=== PATIENT | female | born 1945 | race Caucasian/White ===

== ENCOUNTER 2022-05-05 20:15 | Inpatient (IN) | payer MEDICARE ==
[2022-05-05 20:40] LABS: Absolute Neutrophil Ct (ANC) 6.12 x10^3/uL (1.4-6.9); Basophil (Absolute #) 0.02 x10^3/uL (0-0.4); Eosinophil % 0.3 % (0.00-5.0); Eosinophil (Absolute #) 0.02 x10^3/uL (0-0.5); Hematocrit 29.3 % (35-47); Hemoglobin 8.5 g/dL (12.0-16.0); Lymphocyte (Absolute #) 0.67 x10^3/uL (1.0-4.6); Lymphocytes % 9.1 % (24.0-44.0); Mean Cell Volume 93.9 fL (78-100); Mean Corpuscular Hemoglobin 27.2 pg (26-32); Mean Platelet Volume 9.4 fL (7.5-11.0); Monocyte (Absolute #) 0.54 x10^3/uL (0.0-1.3); Monocytes % 7.3 % (0.0-12.0); Neutrophil % 82.6 % (36.0-66.0); Platelet Count 227 x10^3/uL (150-450); Red Blood Count 3.12 x10^6/uL (4.1-5.4); Red Cell Distribution Width 17.6 % (11.5-14.0); White Blood Count 7.4 x10^3/uL (4.0-10.5)
[2022-05-05] MEDS ORDERED: Sodium Chloride 0.9% 1000 ML 1,000 ML IV STA ×3 (20:42→23:26)
[2022-05-05] MEDS ORDERED: Sodium Chloride 0.9% 1000 ML 1,000 ML ONE ×3 (20:46→23:30)
[2022-05-05] MEDS ORDERED: Lasix 40 MG/4 ML IV ONE (20:55)
[2022-05-05] MEDS ORDERED: Lasix 40 MG/4 ML ONE (21:08)
[2022-05-05 21:10] LABS: ALBUMIN 3.3 g/dL (3.5-5.0); ANION GAP 8.7 MEQ/L (5-15); BILIRUBIN,TOTAL 0.5 mg/dL (0.2-1.3); Calcium 8.7 mg/dL (8.4-10.2); Creatinine 1 1.05 mg/dL (0.52-1.04); EST GLOMERULAR FILTRATION RATE 54.3 ML/MIN; Potassium 5.1 mmol/L (3.5-5.1); Total Protein 5.6 g/dL (6.3-8.2)
[2022-05-05 21:17] LABS: INFLUENZA A NEGATIVE (NEGATIVE); INFLUENZA B NEGATIVE (NEGATIVE); RESPIRATORY SYNCTIAL VIRUS NEGATIVE (Negative); SARS-CoV-2 Xpert Express NEGATIVE (NEGATIVE)
[2022-05-05 21:28] LABS: INR 0.97 (0.8-3.0); PROTIME 10.3 SECONDS (9.4-12.5)
--- NOTE | 2022-05-05 21:34 | XRAY ---
Indication: Dyspnea. Comparison: None Portable chest demonstrates scattered fibrosis/scarring and mild right base infiltrate/atelectasis/effusion. Incidental tiny left upper lung calcified granuloma. Heart not enlarged. Bony thorax intact with osteopenia and degenerative changes.
--- NOTE | 2022-05-05 21:51 | ERPHSYRPT ---
- History of Present Illness Source: EMS Exam Limitations: clinical condition Patient Subjective Stated Complaint: per ems pt has been asking for a breathing treatment all day cause she felt like she needed it, pt did not recieve one and when they did vitals patient was sating 70% on 5 L NC Triage Nursing Assessment: pt arrives to ER via EMS, pt alert and oriented x3, pt c/o increased sob d/t not recieving any of her albuteral treatments today, pt states "I don't think they have been given me my lasix either.", pt recieving duoneb upon arrival, pt has wet cough, pt usually wears 3 L NC at all times, pt has hx of COPD and CHF Timing/Duration: today Activities at Onset: rest Possible Cause: occasional episodes Modifying Factors: Improves With: oxygen (Better w O2) Associated Symptoms: denies symptoms Hx Influenza Vaccination/Date Given: Yes Hx Pneumococcal Vaccination/Date Given: No Immunizations Up to Date: Yes <ELENA MORGAN - Last Filed: 05/06/22 07:09> <ASHLYN ROSADO - Last Filed: 05/06/22 08:51> - History of Present Illness Physician History: 76 yo wf who [facility] after being dis[facility]ared from [facility] 2 days ago presents per EMS w dyspnea. NH hx is very poor. Pt is 3L O2 NC dependent due to COPD. According to NH pt's sats in mid 70's on 5L O2 NC. EMS gave the pt a duoneb and 125mg IV Solumedrol w somewhat improvement. Pt's sats 91-93% on 5L O2 NC after Duoneb finished upon arrival. Pt is alert and oriented to name/place upon arrival. She states that she is dyspneic but denies cough/coryza/chest pain/fever/N/V/D. Pt started to become more dyspneic on 5L O2 NC so Bipap started. (ELENA MORGAN) Allergies/Adverse Reactions: amoxicillin [From Augmentin] Allergy (Verified 05/05/22 20:37) clavulanic acid [From Augmentin] Allergy (Verified 05/05/22 20:37) Home Medications: Albuterol Sulfate [Albuterol Sulfate Hfa] 2 puffs PRN 05/05/22 [History] Alendronate Sodium 70 mg PO WEEKLY 05/05/22 [History] Allopurinol 300 mg [Zyloprim 300 mg] 300 mg PO DAILY 05/05/22 [History] Aspirin 81 mg PO DAILY 05/05/22 [History] Atorvastatin Calcium 20 mg PO DAILY 05/05/22 [History] Celecoxib 100 mg [celeBREX 100 MG] 200 mg PO DAILY 05/05/22 [History] Cholecalciferol (Vitamin D3) [Vitamin D3] 50 mcg PO DAILY 05/05/22 [History] Dicyclomine HCl 20 mg PO DAILY 05/05/22 [History] Fluticasone/Umeclidin/Vilanter [Trelegy Ellipta 100-62.5-25] 1 puff IH DAILY 05/05/22 [History] Furosemide 20 mg [Lasix 20 mg] 20 mg PO DAILY 05/05/22 [History] Gabapentin 600 mg PO BID 05/05/22 [History] Ipratropium/Albuterol Sulfate [Iprat-Albut 0.5-3(2.5) mg/3 ml] 3 ml IH PRN 05/05/22 [History] Levothyroxine Sodium [Synthroid] 125 mcg PO DAILY 05/05/22 [History] Lisinopril 10 mg [Zestril 10 MG] 10 mg PO BID 05/05/22 [History] Metoprolol Tartrate 25 mg PO BID 05/05/22 [History] Prednisone 5 mg [Deltasone 5 mg] 5 mg PO DAILY 05/05/22 [History] Roflumilast 500 mcg PO DAILY 05/05/22 [History] Tizanidine HCl 4 mg [Zanaflex 4 MG] 4 mg PO DAILY 05/05/22 [History] Travel Risk - International Travel Have you traveled outside of the country in past 3 weeks: No - Coronavirus Screening Are you exhibiting any of the following symptoms?: No Close contact with a COVID-19 positive Pt in past 14-21 Days: No - Vaccine Status Have you recieved a Covid-19 vaccination: Yes Cloth Shader: Ebonya - Vaccination Dates Date of 2cond Vaccination (if applicable): unknown <ELENA MORGAN - Last Filed: 05/06/22 07:09> - Review of Systems Constitutional: No Symptoms Eyes: No Symptoms Ears, Nose, & Throat: No Symptoms Respiratory: No Symptoms Cardiac: No Symptoms Abdominal/Gastrointestinal: No Symptoms Genitourinary Symptoms: No Symptoms Musculoskeletal: No Symptoms Skin: No Symptoms Neurological: No Symptoms Psychological: No Symptoms Endocrine: No Symptoms Hematologic/Lymphatic: No Symptoms Immunological/Allergic: No Symptoms <ELENA MORGAN - Last Filed: 05/06/22 07:09> - Past Medical History Cardiac History: Congenital Heart Disease, Hypertension Respiratory History: COPD Endocrine Medical History: Hypothyroidism Other Medical History: chronic kidney disease - Past Surgical History Past Surgical History: Yes Gastrointestinal: Cholecystectomy - Social History Smoking Status: Former smoker Exposure to second hand smoke: No Drug Use: none Patient Lives Alone: No <ELENA MORGAN - Last Filed: 05/06/22 07:09> - Physical Exam General Appearance: mild distress Eye Exam: PERRL/EOMI, eyes nml inspection Ears, Nose, Throat Exam: hearing grossly normal, normal ENT inspection, normal pharynx Neck Exam: normal inspection, non-tender, supple, full range of motion, No Brudzinski, No Kernig's, No meningismus, No JVD Respiratory Exam: respiratory distress (Mild upon arrival which progressed), diminished breath sounds (Markedly dimished BS B), prolonged expirations Cardiovascular/Chest Exam: normal heart sounds, regular rate/rhythm, No murmur Abdominal/Gastrointestinal Exam: soft, normal bowel sounds, No tenderness Extremity Exam: non-tender, pedal edema (2+ B) Peripheral Pulses Exam: carotid (R): 2+, carotid (L): 2+ Neurologic Exam: alert, cooperative, 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, sensation nml (Disoriented to time) Skin Exam: normal color Lymphatic Exam: No adenopathy SpO2 Interpretation: hypoxic SpO2: 90 O2 Delivery: Nasal Cannula (5L) <ELENA MORGAN - Last Filed: 05/06/22 07:09> - Nursing Vital Signs Nursing Vital Signs: Initial Vital Signs Temperature 97.8 F 05/05/22 20:22 Pulse Rate 79 05/05/22 20:22 Respiratory Rate 22 05/05/22 20:22 O2 Sat by Pulse Oximetry 100 05/05/22 20:22 Pain Scale Pain Intensity 0 100% on Neb treatment upon arrival (ELENA MORGAN) - Course Nursing assessment & vital signs reviewed: Yes EKG Interpreted by Me: RATE (NSR/Rate76/Normal QT-QTc/Nonspecific ST-Twave changes) - CT Exams Cervical Spine CT Interpretation: Discussed w/radiologist <ELNEA MORGAN - Last Filed: 05/06/22 07:09> Ordered Tests: Active Orders 24 hr Category Date Time Status EKG-ER Only STAT Care 05/05/22 20:17 Active Ruiz [Catheter-Bethel Ruiz] STAT Care 05/05/22 21:45 Active IV Insertion STAT Care 05/05/22 21:46 Active IV Insertion-2nd Peripheral STAT Care 05/05/22 21:46 Active CHEST 1 VIEW (PORTABLE) Stat Exams 05/05/22 20:18 Completed CHEST WITH CONTRAST [CT] Stat Exams 05/05/22 22:13 Taken ABG [ARTERIAL BLOOD GASES] Stat Lab 05/05/22 23:44 Completed BLOOD CULTURE Stat Lab 05/05/22 22:30 Received BMP Stat Lab 05/06/22 08:08 Ordered BNP [NT PRO BNP] Stat Lab 05/06/22 08:36 Ordered CBC W DIFF Stat Lab 05/05/22 20:37 Completed CMP Stat Lab 05/05/22 20:37 Completed D-DIMER QUANTITATIVE Stat Lab 05/05/22 20:30 Completed Lactic Acid Stat Lab 05/05/22 20:45 Completed Lactic Acid Stat Lab 05/05/22 22:57 Completed NT PRO BNP Stat Lab 05/05/22 20:37 Completed PROTIME WITH INR Stat Lab 05/05/22 20:37 Completed PTT Stat Lab 05/05/22 20:37 Completed TROPONIN Q4H Lab 05/05/22 20:37 Completed TROPONIN Q4H Lab 05/06/22 00:05 Completed TROPONIN Q4H Lab 05/06/22 04:55 Completed UA W/RFX CULTURE Stat Lab 05/05/22 21:45 Completed Medication Summary Generic Name Dose Route Start Last Admin Trade Name Freq PRN Reason Stop Dose Admin Norepinephrine/Dextrose 8 mg in 250 mls @ 15 mls/hr 05/05/22 23:27 05/06/22 01:01 Norepinephrine 8 Mg/250 Ml-D5w IV 06/04/22 23:26 2 mcg/min .[id number] PRN 3.75 mls/hr HYPOTENSION Titration Protocol 8 MCG/MIN Sodium Chloride 1,000 mls @ 100 mls/hr 05/06/22 06:15 05/06/22 06:19 Sodium Chloride 0.9% 1000 Ml IV 06/05/22 06:14 100 mls/hr .Q10H CHRISTY Administration Discontinued Medications Generic Name Dose Route Start Last Admin Trade Name Freq PRN Reason Stop Dose Admin Furosemide 40 mg 05/05/22 20:55 05/05/22 21:09 Furosemide 40 Mg/4 Ml Vial IV 05/05/22 20:56 40 mg STAT ONE Administration Furosemide Confirm 05/05/22 21:08 Furosemide 40 Mg/4 Ml Vial Administered 05/05/22 21:09 Dose 40 mg .ROUTE .STK-MED ONE Sodium Chloride 1,000 mls @ 999 mls/hr 05/05/22 20:42 05/05/22 22:21 Sodium Chloride 0.9% 1000 Ml IV 05/05/22 21:42 Infused .Q1H1M STA Infusion Sodium Chloride Confirm 05/05/22 20:46 Sodium Chloride 0.9% 1000 Ml Administered 05/05/22 20:47 Dose 1,000 mls @ ud .ROUTE .STK-MED ONE Sodium Chloride 1,000 mls @ 999 mls/hr 05/05/22 22:01 05/05/22 23:26 Sodium Chloride 0.9% 1000 Ml IV 05/05/22 23:01 Infused .Q1H1M STA Infusion Sodium Chloride Confirm 05/05/22 22:02 Sodium Chloride 0.9% 1000 Ml Administered 05/05/22 22:03 Dose 1,000 mls @ ud .ROUTE .STK-MED ONE Ceftriaxone Sodium/Dextrose 1 g in 50 mls @ 100 mls/hr 05/05/22 22:19 05/05/22 23:25 Rocephin 1 Gm-D5w 50 Ml Bag IV 05/05/22 22:48 Infused STAT STA Infusion Ceftriaxone Sodium/Dextrose Confirm 05/05/22 22:25 Rocephin 1 Gm-D5w 50 Ml Bag Administered 05/05/22 22:26 Dose 1 g in 50 mls @ ud IV .STK-MED ONE Sodium Chloride 1,000 mls @ 999 mls/hr 05/05/22 23:26 05/06/22 07:06 Sodium Chloride 0.9% 1000 Ml IV 05/06/22 00:26 Infused .Q1H1M STA Infusion Sodium Chloride Confirm 05/05/22 23:30 Sodium Chloride 0.9% 1000 Ml Administered 05/05/22 23:31 Dose 1,000 mls @ ud .ROUTE .STK-MED ONE Azithromycin 500 mg in 250 mls @ 250 mls/hr 05/06/22 00:40 05/06/22 02:10 Zithromax 500 Mg/ 250 Ml Nacl Premix IV 05/06/22 01:39 Infused STAT STA Infusion Azithromycin Confirm 05/06/22 00:57 Zithromax 500 Mg/ 250 Ml Nacl Premix Administered 05/06/22 00:58 Dose 500 mg in 250 mls @ ud IV .STK-MED ONE Lab/Rad Data: Laboratory Result Diagrams 05/05/22 20:37 05/05/22 20:37 Laboratory Results 05/06/22 05/06/22 05/05/22 Range/Units 04:55 00:05 23:44 WBC (4.0-10.5) x10^3/uL RBC (4.1-5.4) x10^6/uL Hgb (12.0-16.0) g/dL Hct (35-47) % MCV (78-100) fL MCH (26-32) pg MCHC (32-36) g/dL RDW (11.5-14.0) % Plt Count (150-450) x10^3/uL MPV (7.5-11.0) fL Gran % (36.0-66.0) % Immature Gran % (Auto) (0.00-0.4) % Nucleat RBC Rel Count (0.00-0.1) % Eos # (Auto) (0-0.5) x10^3/uL Immature Gran # (Auto) (0.00-0.03) x10^3u/L Absolute Lymphs (auto) (1.0-4.6) x10^3/uL Absolute Monos (auto) (0.0-1.3) x10^3/uL Absolute Nucleated RBC (0.00-0.01) x10^3u/L Lymphocytes % (24.0-44.0) % Monocytes % (0.0-12.0) % Eosinophils % (0.00-5.0) % Basophils % (0.0-0.4) % Absolute Granulocytes (1.4-6.9) x10^3/uL Basophils # (0-0.4) x10^3/uL PT (9.4-12.5) SECONDS INR (0.8-3.0) APTT (25.1-36.5) SECONDS D-Dimer (0.0-0.50) mg/L Puncture Site LEFT RADIAL pCO2 43 (35-45) mmHg pO2 117 H (75-100) mmHg Base Excess 10.3 H (-2.0-2.0) O2 Saturation 94.2 (94-100) g/dF ABG pH 7.51 H (7.35-7.45) ABG HCO3 34.3 H* (22-28) ABG O2 Sat (Measured) 99.5 (95-100) % Chris Test YES A-a Gradient 150 a/A Ratio 0.44 Hemoglobin 8.0 Carboxyhemoglobin 4.0 (0.0-6.9) % THgb Methemoglobin 1.3 L (1.4-1.5) % Temperature 37.0 C POC O2 Flow Rate 45 % Vent Mode BiPAP Sodium (137-145) mmol/L Potassium 5.0 (3.5-5.1) mmol/L Chloride (98-107) mmol/L Carbon Dioxide (22-30) mmol/L Anion Gap (5-15) MEQ/L BUN (7-17) mg/dL Creatinine (0.52-1.04) mg/dL Estimated GFR ML/MIN Glucose (74-106) mg/dL Lactic Acid (0.4-2.0) Calcium (8.4-10.2) mg/dL Total Bilirubin (0.2-1.3) mg/dL AST (14-36) U/L ALT (0-35) U/L Alkaline Phosphatase (38-126) U/L Troponin I 0.038 H* 0.046 H* (0.000-0.034) ng/mL NT-Pro-B Natriuret Pep (0-1800) pg/mL Serum Total Protein (6.3-8.2) g/dL Albumin (3.5-5.0) g/dL Urinalys Dipstick Clnc Urine Color (YELLOW) Urine Appearance (CLEAR) Urine pH (5-6) Ur Specific Mobile (1.005-1.025) POC Urine Protein Conf (Negative) Urine Ketones (NEGATIVE) Urine Nitrite (NEGATIVE) Urine Bilirubin (NEGATIVE) Urine Urobilinogen (0-1) mg/dL Urine Leukocytes (NEGATIVE) Urine WBC (Auto) (0-5) /HPF Urine RBC (Auto) (0-2) /HPF U Hyaline Cast (Auto) (0-2) /LPF U Epithel Cells (Auto) (FEW) /HPF Urine Bacteria (Auto) (NEGATIVE) /HPF Urine RBC (0-5) Roman/ul Ur Culture Indicated? Urine Glucose (NEGATIVE) mg/dL Influenza Type A Ag (NEGATIVE) Influenza Type B Ag (NEGATIVE) RSV (PCR) (Negative) SARS-CoV-2 (PCR) (NEGATIVE) 05/05/22 05/05/22 05/05/22 Range/Units 22:57 21:45 20:45 WBC (4.0-10.5) x10^3/uL RBC (4.1-5.4) x10^6/uL Hgb (12.0-16.0) g/dL Hct (35-47) % MCV (78-100) fL MCH (26-32) pg MCHC (32-36) g/dL RDW (11.5-14.0) % Plt Count (150-450) x10^3/uL MPV (7.5-11.0) fL Gran % (36.0-66.0) % Immature Gran % (Auto) (0.00-0.4) % Nucleat RBC Rel Count (0.00-0.1) % Eos # (Auto) (0-0.5) x10^3/uL Immature Gran # (Auto) (0.00-0.03) x10^3u/L Absolute Lymphs (auto) (1.0-4.6) x10^3/uL Absolute Monos (auto) (0.0-1.3) x10^3/uL Absolute Nucleated RBC (0.00-0.01) x10^3u/L Lymphocytes % (24.0-44.0) % Monocytes % (0.0-12.0) % Eosinophils % (0.00-5.0) % Basophils % (0.0-0.4) % Absolute Granulocytes (1.4-6.9) x10^3/uL Basophils # (0-0.4) x10^3/uL PT (9.4-12.5) SECONDS INR (0.8-3.0) APTT (25.1-36.5) SECONDS D-Dimer (0.0-0.50) mg/L Puncture Site pCO2 (35-45) mmHg pO2 (75-100) mmHg Base Excess (-2.0-2.0) O2 Saturation (94-100) g/dF ABG pH (7.35-7.45) ABG HCO3 (22-28) ABG O2 Sat (Measured) (95-100) % Chris Test A-a Gradient a/A Ratio Hemoglobin Carboxyhemoglobin (0.0-6.9) % THgb Methemoglobin (1.4-1.5) % Temperature C POC O2 Flow Rate % Vent Mode Sodium (137-145) mmol/L Potassium (3.5-5.1) mmol/L Chloride (98-107) mmol/L Carbon Dioxide (22-30) mmol/L Anion Gap (5-15) MEQ/L BUN (7-17) mg/dL Creatinine (0.52-1.04) mg/dL Estimated GFR ML/MIN Glucose (74-106) mg/dL Lactic Acid 0.8 2.3 H (0.4-2.0) Calcium (8.4-10.2) mg/dL Total Bilirubin (0.2-1.3) mg/dL AST (14-36) U/L ALT (0-35) U/L Alkaline Phosphatase (38-126) U/L Troponin I (0.000-0.034) ng/mL NT-Pro-B Natriuret Pep (0-1800) pg/mL Serum Total Protein (6.3-8.2) g/dL Albumin (3.5-5.0) g/dL Urinalys Dipstick Clnc MAIN LAB Urine Color YELLOW (YELLOW) Urine Appearance CLEAR (CLEAR) Urine pH 6.0 (5-6) Ur Specific Mobile 1.015 (1.005-1.025) POC Urine Protein Conf TRACE A (Negative) Urine Ketones NEGATIVE (NEGATIVE) Urine Nitrite NEGATIVE (NEGATIVE) Urine Bilirubin NEGATIVE (NEGATIVE) Urine Urobilinogen 0.2 (0-1) mg/dL Urine Leukocytes NEGATIVE (NEGATIVE) Urine WBC (Auto) 0-2 (0-5) /HPF Urine RBC (Auto) 0-2 (0-2) /HPF U Hyaline Cast (Auto) 3-5 A (0-2) /LPF U Epithel Cells (Auto) NONE (FEW) /HPF Urine Bacteria (Auto) NONE (NEGATIVE) /HPF Urine RBC MODERATE A (0-5) Roman/ul Ur Culture Indicated? NO Urine Glucose 250 A (NEGATIVE) mg/dL Influenza Type A Ag (NEGATIVE) Influenza Type B Ag (NEGATIVE) RSV (PCR) (Negative) SARS-CoV-2 (PCR) (NEGATIVE) 05/05/22 05/05/22 05/05/22 Range/Units 20:37 20:37 20:37 WBC (4.0-10.5) x10^3/uL RBC (4.1-5.4) x10^6/uL Hgb (12.0-16.0) g/dL Hct (35-47) % MCV (78-100) fL MCH (26-32) pg MCHC (32-36) g/dL RDW (11.5-14.0) % Plt Count (150-450) x10^3/uL MPV (7.5-11.0) fL Gran % (36.0-66.0) % Immature Gran % (Auto) (0.00-0.4) % Nucleat RBC Rel Count (0.00-0.1) % Eos # (Auto) (0-0.5) x10^3/uL Immature Gran # (Auto) (0.00-0.03) x10^3u/L Absolute Lymphs (auto) (1.0-4.6) x10^3/uL Absolute Monos (auto) (0.0-1.3) x10^3/uL Absolute Nucleated RBC (0.00-0.01) x10^3u/L Lymphocytes % (24.0-44.0) % Monocytes % (0.0-12.0) % Eosinophils % (0.00-5.0) % Basophils % (0.0-0.4) % Absolute Granulocytes (1.4-6.9) x10^3/uL Basophils # (0-0.4) x10^3/uL PT 10.3 (9.4-12.5) SECONDS INR 0.97 (0.8-3.0) APTT 23.0 L (25.1-36.5) SECONDS D-Dimer (0.0-0.50) mg/L Puncture Site pCO2 (35-45) mmHg pO2 (75-100) mmHg Base Excess (-2.0-2.0) O2 Saturation (94-100) g/dF ABG pH (7.35-7.45) ABG HCO3 (22-28) ABG O2 Sat (Measured) (95-100) % Chris Test A-a Gradient a/A Ratio Hemoglobin Carboxyhemoglobin (0.0-6.9) % THgb Methemoglobin (1.4-1.5) % Temperature C POC O2 Flow Rate % Vent Mode Sodium (137-145) mmol/L Potassium (3.5-5.1) mmol/L Chloride (98-107) mmol/L Carbon Dioxide (22-30) mmol/L Anion Gap (5-15) MEQ/L BUN (7-17) mg/dL Creatinine (0.52-1.04) mg/dL Estimated GFR ML/MIN Glucose (74-106) mg/dL Lactic Acid (0.4-2.0) Calcium (8.4-10.2) mg/dL Total Bilirubin (0.2-1.3) mg/dL AST (14-36) U/L ALT (0-35) U/L Alkaline Phosphatase (38-126) U/L Troponin I 0.039 H* (0.000-0.034) ng/mL NT-Pro-B Natriuret Pep (0-1800) pg/mL Serum Total Protein (6.3-8.2) g/dL Albumin (3.5-5.0) g/dL Urinalys Dipstick Clnc Urine Color (YELLOW) Urine Appearance (CLEAR) Urine pH (5-6) Ur Specific Mobile (1.005-1.025) POC Urine Protein Conf (Negative) Urine Ketones (NEGATIVE) Urine Nitrite (NEGATIVE) Urine Bilirubin (NEGATIVE) Urine Urobilinogen (0-1) mg/dL Urine Leukocytes (NEGATIVE) Urine WBC (Auto) (0-5) /HPF Urine RBC (Auto) (0-2) /HPF U Hyaline Cast (Auto) (0-2) /LPF U Epithel Cells (Auto) (FEW) /HPF Urine Bacteria (Auto) (NEGATIVE) /HPF Urine RBC (0-5) Roman/ul Ur Culture Indicated? Urine Glucose (NEGATIVE) mg/dL Influenza Type A Ag NEGATIVE (NEGATIVE) Influenza Type B Ag NEGATIVE (NEGATIVE) RSV (PCR) NEGATIVE (Negative) SARS-CoV-2 (PCR) NEGATIVE (NEGATIVE) 05/05/22 05/05/22 05/05/22 Range/Units 20:37 20:37 20:30 WBC 7.4 (4.0-10.5) x10^3/uL RBC 3.12 L (4.1-5.4) x10^6/uL Hgb 8.5 L (12.0-16.0) g/dL Hct 29.3 L (35-47) % MCV 93.9 (78-100) fL MCH 27.2 (26-32) pg MCHC 29.0 L (32-36) g/dL RDW 17.6 H (11.5-14.0) % Plt Count 227 (150-450) x10^3/uL MPV 9.4 (7.5-11.0) fL Gran % 82.6 H (36.0-66.0) % Immature Gran % (Auto) 0.4 (0.00-0.4) % Nucleat RBC Rel Count 0.0 (0.00-0.1) % Eos # (Auto) 0.02 (0-0.5) x10^3/uL Immature Gran # (Auto) 0.03 (0.00-0.03) x10^3u/L Absolute Lymphs (auto) 0.67 L (1.0-4.6) x10^3/uL Absolute Monos (auto) 0.54 (0.0-1.3) x10^3/uL Absolute Nucleated RBC 0.00 (0.00-0.01) x10^3u/L Lymphocytes % 9.1 L (24.0-44.0) % Monocytes % 7.3 (0.0-12.0) % Eosinophils % 0.3 (0.00-5.0) % Basophils % 0.3 (0.0-0.4) % Absolute Granulocytes 6.12 (1.4-6.9) x10^3/uL Basophils # 0.02 (0-0.4) x10^3/uL PT (9.4-12.5) SECONDS INR (0.8-3.0) APTT (25.1-36.5) SECONDS D-Dimer 0.76 H* (0.0-0.50) mg/L Puncture Site pCO2 (35-45) mmHg pO2 (75-100) mmHg Base Excess (-2.0-2.0) O2 Saturation (94-100) g/dF ABG pH (7.35-7.45) ABG HCO3 (22-28) ABG O2 Sat (Measured) (95-100) % Chris Test A-a Gradient a/A Ratio Hemoglobin Carboxyhemoglobin (0.0-6.9) % THgb Methemoglobin (1.4-1.5) % Temperature C POC O2 Flow Rate % Vent Mode Sodium 122 L (137-145) mmol/L Potassium 5.1 (3.5-5.1) mmol/L Chloride 77 L (98-107) mmol/L Carbon Dioxide 39 H (22-30) mmol/L Anion Gap 8.7 (5-15) MEQ/L BUN 20 H (7-17) mg/dL Creatinine 1.05 H (0.52-1.04) mg/dL Estimated GFR 54.3 ML/MIN Glucose 199 H (74-106) mg/dL Lactic Acid (0.4-2.0) Calcium 8.7 (8.4-10.2) mg/dL Total Bilirubin 0.50 (0.2-1.3) mg/dL AST 28 (14-36) U/L ALT 23 (0-35) U/L Alkaline Phosphatase 79 (38-126) U/L Troponin I (0.000-0.034) ng/mL NT-Pro-B Natriuret Pep 2900 H (0-1800) pg/mL Serum Total Protein 5.6 L (6.3-8.2) g/dL Albumin 3.3 L (3.5-5.0) g/dL Urinalys Dipstick Clnc Urine Color (YELLOW) Urine Appearance (CLEAR) Urine pH (5-6) Ur Specific Mobile (1.005-1.025) POC Urine Protein Conf (Negative) Urine Ketones (NEGATIVE) Urine Nitrite (NEGATIVE) Urine Bilirubin (NEGATIVE) Urine Urobilinogen (0-1) mg/dL Urine Leukocytes (NEGATIVE) Urine WBC (Auto) (0-5) /HPF Urine RBC (Auto) (0-2) /HPF U Hyaline Cast (Auto) (0-2) /LPF U Epithel Cells (Auto) (FEW) /HPF Urine Bacteria (Auto) (NEGATIVE) /HPF Urine RBC (0-5) Roman/ul Ur Culture Indicated? Urine Glucose (NEGATIVE) mg/dL Influenza Type A Ag (NEGATIVE) Influenza Type B Ag (NEGATIVE) RSV (PCR) (Negative) SARS-CoV-2 (PCR) (NEGATIVE) - Progress Progress: improved Blood Culture(s) Obtained: Yes Antibiotics given: Yes Counseled pt/family regarding: lab results, diagnosis, need for follow-up, rad results <ELENA MORGAN - Last Filed: 05/06/22 07:09> - Progress Air Movement: fair <ASHLYN ROSADO - Last Filed: 05/06/22 08:51> - Progress Progress Note: Pt initially arrived receiving Duoneb w good sats per EMS. 125mg IV Solumedrol per EMS in route. She initially stabilized but became more hypoxic and hypotension ensued. Bipap started and 2L NS bolus also started. CXR demonstrated R effusion w pulmonary vascular congestion, so 40mg IV Lasix given. Ruiz catheter placed per nursing w 150-200ml urine output. BP still low after 2L NS bolus, so Levafed drip started w good results. 1gm IV Rocephin given for possible sepsis. CTA of chest demonstrated moderate R pleural effusion w moderate R basilar consolidation which is most likely atelectasis. Pt's troponin initially elevated w slight increase in troponin #2. 05/06/22 01:[address] Hardin at [facility] No beds at [facility] Unable to find transport to [facility] 05/06/22 06:28 05/06/22 07:[address] over to [address] Rosado at 7:00AM w transport needing to be arranged. Pt stable. (ELENA MORGAN) 05/06/22 08:42 Patient was checked out to me at shift change from Dr. Morgan with pending transfer related needs. We got a call back from [facility] that they had to give reserved bed for this patient to another patient who was not clear to call up there and they will call us back with bed when available. I have called [facility] and [facility] which both of them are at full capacity and not excepting transfers at this point. Patient during my evaluation is feeling much better on BiPAP and not in any distress with stable vitals. Per Dr. Morgan patient decided to go with DNR but does not have any paperwork signed. I have discussed with patient and in detail and she decided to stay DNR CODE STATUS. I have discussed with , reviewed history, work-up and we have ICU bed available here, patient is excepted for admission. Plan discussed with patient and family who understand and happy with staying in here. (ASHLYN ROSADO) - Departure Critical Care Time: Yes Critical Care Time(excluding separately billable procedures): Critical 75-104 mins <ELENA MORGAN - Last Filed: 05/06/22 07:09> - Departure Departure Disposition: In-patient Admission <ASHLYN ROSADO - Last Filed: 05/06/22 08:51> - Departure Clinical Impression: Respiratory failure, Elevated troponin, Sepsis, Hyponatremia, CHF exacerbation Condition: Fair Referrals: DOCTOR,NO FAMILY [NON-STAFF PHY W/O PRIVILEGES] - Follow up/PCP as directed Instructions: Heart Failure
[2022-05-05 21:58] LABS: Appearance CLEAR (CLEAR); Bilirubin NEGATIVE (NEGATIVE); Dipstick done @ ? MAIN LAB; Glucose 250 mg/dL (NEGATIVE); Ketones NEGATIVE (NEGATIVE); Nitrite NEGATIVE (NEGATIVE); Protein,Urine Dip TRACE (Negative); RBC MODERATE Ery/ul (0-5); Specific Gravity 1.015 (1.005-1.025); Urobilinogen 0.2 mg/dL (0-1)
[2022-05-05 22:03] LABS: RBC 0-2 /HPF (0-2); WBC 0-2 /HPF (0-5)
[2022-05-05 22:04] LABS: Urine Cultured Indicated? NO
[2022-05-05] MEDS ORDERED: ROCEPHIN 1 Gm-D5w 50 ml Bag** 1 G/50 ML IVPB IV STA (22:19)
[2022-05-05] MEDS ORDERED: ROCEPHIN 1 Gm-D5w 50 ml Bag** 1 G/50 ML IVPB IV ONE (22:25)
[2022-05-05] MEDS ORDERED: NOREPINEPHRINE 8 MG/250 ML-D5W 8 MG/250 ML PLAST..BAG IV PRN (23:27)
[2022-05-05 23:48] LABS: A-aADO2 150; ABG SITE LEFT RADIAL; ALLEN TEST OK? YES; ARTERIAL BLD GAS O2 SATURATION 99.5 % (95-100); ARTERIAL BLOOD GAS BASE EXCESS 10.3 (-2.0-2.0); ARTERIAL BLOOD GAS FIO2 45 %; ARTERIAL BLOOD GAS PCO2 43 mmHg (35-45); ARTERIAL BLOOD GAS PO2 117 mmHg (75-100); ARTERIAL BLOOD GAS VENT MODE BiPAP; ARTERIAL BLOOD GAS pH 7.51 (7.35-7.45); HCO3- 34.3 (22-28); HGB O2 SAT 94.2 g/dF (94-100); Methhemoglobin 1.3 % (1.4-1.5)
[2022-05-06] MEDS ORDERED: Zithromax 500 MG/ 250 ML NaCl Premix 500 MG/250 ML IVPB IV STA ×2 (00:40→09:24)
[2022-05-06] MEDS ORDERED: Zithromax 500 MG/ 250 ML NaCl Premix 500 MG/250 ML IVPB IV ONE (00:57)
[2022-05-06] MEDS ORDERED: Sodium Chloride 0.9% 1000 ML 1,000 ML IV SCH (06:15)
[2022-05-06 09:07] LABS: ANION GAP 10.1 MEQ/L (5-15); BLOOD UREA NITROGEN 18 mg/dL (7-17); CHLORIDE 89 mmol/L (98-107); Calcium 8.2 mg/dL (8.4-10.2); Carbon Dioxide 34 mmol/L (22-30); Creatinine 1 0.91 mg/dL (0.52-1.04); EST GLOMERULAR FILTRATION RATE > 60.0 ML/MIN; Glucose 171 mg/dL (74-106); NT PRO BNP 1800 pg/mL (0-1800); Potassium 4.9 mmol/L (3.5-5.1); SODIUM 128 mmol/L (137-145)
--- NOTE | 2022-05-06 09:18 | XRAY ---
Indication: Dyspnea. Elevated d-dimer. Multiple contiguous axial images obtained through the chest using 100 cc Isovue 370 contrast and PE protocol. Comparison: None Good opacification of the pulmonary arteries to include the lobar and segmental branches. However mild respiration artifact limits evaluation of the more distal lobar and segmental branches. No central pulmonary embolus. Heart borderline enlarged. Aorta mildly arteriosclerotic without aneurysm/dissection. No pathologic mediastinal/hilar lymphadenopathy. Lungs demonstrates diffuse pulmonary emphysema with scattered fibrosis/scarring. Also small right and very tiny left effusions with with compressive atelectasis. Bony thorax demonstrates osteopenia, mild degenerative changes throughout the spine, and old right rib fractures. Limited upper abdomen demonstrates mild fatty liver, incompletely visualized 9 mm left mid renal cyst, and right upper quadrant abdominal wall suture material. Impression: 1. Negative pulmonary embolus. 2. Borderline cardiomegaly with bibasilar effusion/atelectasis right greater than left. Rule out cardiac decompensation/CHF. Superimposed pneumonia not completely excluded. 3. Chronic findings including pulmonary emphysema, fibrosis/scarring, arteriosclerotic disease, chronic bony findings, fatty liver, and tiny left renal cyst. Comment: Preliminary interpretation made by C. No critical discrepancy.
[2022-05-06] MEDS ORDERED: HUMALOG SQ PRN (09:24)
[2022-05-06] MEDS ORDERED: ROCEPHIN 2 Gm-D5w 50ML BAG** 2 G/50 ML IVPB IV STA (09:24)
[2022-05-06] MEDS: Advair Hfa 115/21 Common canister IH SCH ×2 (09:55→19:50)
[2022-05-06] MEDS ORDERED: DUONEB 0.5-3 MG/3 ml Neb IH ONE (09:57)
[2022-05-06] MEDS: PROTONIX 40 MG IV IV SCH (10:14)
[2022-05-06] MEDS ORDERED: DUONEB 0.5-3 MG/3 ml Neb IH PRN ×2 (10:15→10:49)
[2022-05-06] MEDS ORDERED: MILK OF MAGNESIA 30 ML PO PRN (10:49)
[2022-05-06] MEDS ORDERED: VENTOLIN COMMON CANISTER IH PRN (10:49)
[2022-05-06] MEDS: BENTYL 20 MG PO SCH ×2 (11:11→15:57)
[2022-05-06] MEDS: Vitamin E 400 UNIT SOFTGEL PO SCH (11:12)
[2022-05-06] MEDS: VITAMIN D PO SCH (11:12)
[2022-05-06] MEDS: Zinc Gluconate 50 MG PO SCH (11:12)
[2022-05-06] MEDS ORDERED: MEDICATION INTERVENTION MC SCH (11:15)
[2022-05-06] MEDS: solu-MEDROL 60 MG, Sterile H2O 10 ml 2 ML IV SCH ×4 (11:16→17:29)
[2022-05-06] MEDS: SYNTHROID 125 MCG PO SCH (11:16)
[2022-05-06] MEDS: ZYLOPRIM 300 MG PO SCH (11:16)
[2022-05-06] MEDS: Lopressor 25MG Tab PO SCH ×2 (11:16→21:15)
[2022-05-06] MEDS: celeBREX 100 MG PO SCH (11:16)
[2022-05-06] MEDS: ECOTRIN 81 MG PO SCH (11:16)
[2022-05-06] MEDS: Zestril 10 MG PO SCH (11:16)
[2022-05-06] MEDS: NEURONTIN PO SCH ×2 (11:16→21:15)
[2022-05-06] MEDS: DALIRESP PO SCH (12:14)
[2022-05-06] MEDS: ENOXAPARIN SODIUM SQ SCH (12:27)
[2022-05-06] MEDS: CARDIZEM DRIP 100 MG/100 ML D5W 100 ML IV PRN ×2 (12:27→23:26)
[2022-05-06] MEDS ORDERED: DUONEB 0.5-3 MG/3 ml Neb IH SCH (13:00)
[2022-05-06] MEDS: Zanaflex 4 MG PO SCH ×2 (13:46→21:15)
[2022-05-06] MEDS: Sodium Chloride 0.9% 1000 ML 1,000 ML IV SCH (14:44)
[2022-05-06] MEDS: LASIX 20 MG PO SCH (15:57)
[2022-05-06] MEDS ORDERED: Flonase NASAL NS ONE (17:17)
[2022-05-06] MEDS: Flonase NASAL NS SCH (17:18)
[2022-05-06] MEDS ORDERED: solu-MEDROL ONE (17:21)
[2022-05-06] MEDS ORDERED: Ativan 2 MG/1 ML VIAL IV PRN (18:59)
[2022-05-06] MEDS ORDERED: OCEAN Nasal Spray NS PRN (21:09)
[2022-05-06] MEDS: ZOCOR 20MG PO SCH (21:15)
[2022-05-06] MEDS: Singulair 10 MG PO SCH (21:15)
[2022-05-06] MEDS: ZYVOX PO SCH (21:25)
[2022-05-06] MEDS ORDERED: NON-FORMULARY ITEM (Atorvastatin Calcium [Atorvastatin Calcium] 20 MG Tablet) PO SCH (22:00)
[2022-05-06] MEDS ORDERED: NON-FORMULARY ITEM (Gabapentin [Gabapentin] 600 MG Tablet) PO SCH (22:00)
[2022-05-07] MEDS: solu-MEDROL 60 MG, Sterile H2O 10 ml 2 ML IV SCH ×10 (00:22→23:10)
[2022-05-07] MEDS ORDERED: Fosamax 70 MG PO SCH (06:00)
[2022-05-07] MEDS: Sodium Chloride 0.9% 1000 ML 1,000 ML IV SCH (06:06)
[2022-05-07] MEDS: Zanaflex 4 MG PO SCH ×3 (06:06→21:06)
[2022-05-07 06:18] LABS: Absolute Neutrophil Ct (ANC) 5.84 x10^3/uL (1.4-6.9); Basophil (Absolute #) 0 x10^3/uL (0-0.4); Eosinophil (Absolute #) 0 x10^3/uL (0-0.5); Hematocrit 28.5 % (35-47); Lymphocyte (Absolute #) 0.27 x10^3/uL (1.0-4.6); Lymphocytes % 4.3 % (24.0-44.0); Mean Cell Volume 96.9 fL (78-100); Mean Corpuscular Hemoglobin 27.2 pg (26-32); Mean Corpuscular Hgb Concent. 28.1 g/dL (32-36); Mean Platelet Volume 9.6 fL (7.5-11.0); Monocyte (Absolute #) 0.13 x10^3/uL (0.0-1.3); Monocytes % 2.1 % (0.0-12.0); Neutrophil % 92.8 % (36.0-66.0); Platelet Count 190 x10^3/uL (150-450); Red Blood Count 2.94 x10^6/uL (4.1-5.4); Red Cell Distribution Width 17.8 % (11.5-14.0); White Blood Count 6.3 x10^3/uL (4.0-10.5)
[2022-05-07 06:54] LABS: ALBUMIN 3.4 g/dL (3.5-5.0); ALKALINE PHOSPHATASE 71 U/L (38-126); BLOOD UREA NITROGEN 18 mg/dL (7-17); CHLORIDE 94 mmol/L (98-107); Calcium 7.6 mg/dL (8.4-10.2); Carbon Dioxide 36 mmol/L (22-30); Creatinine 1 0.83 mg/dL (0.52-1.04); EST GLOMERULAR FILTRATION RATE > 60.0 ML/MIN; Glucose 179 mg/dL (74-106); SGOT/AST 25 U/L (14-36); SGPT/ALT 24 U/L (0-35); SODIUM 132 mmol/L (137-145); Total Protein 5.9 g/dL (6.3-8.2)
[2022-05-07] MEDS: Advair Hfa 115/21 Common canister IH SCH ×2 (07:12→19:35)
[2022-05-07] MEDS ORDERED: OCEAN Nasal Spray NS PRN (07:15)
[2022-05-07] MEDS: BENTYL 20 MG PO SCH ×3 (07:19→16:56)
[2022-05-07 08:02] LABS: Slide Review 1 YES
[2022-05-07] MEDS: Zinc Gluconate 50 MG PO SCH (09:07)
[2022-05-07] MEDS: Zestril 10 MG PO SCH (09:07)
[2022-05-07] MEDS: Vitamin E 400 UNIT SOFTGEL PO SCH (09:07)
[2022-05-07] MEDS: ENOXAPARIN SODIUM SQ SCH (09:08)
[2022-05-07] MEDS: LASIX 20 MG PO SCH ×2 (09:08→16:56)
[2022-05-07] MEDS: Lopressor 25MG Tab PO SCH ×2 (09:08→21:05)
[2022-05-07] MEDS: VITAMIN D PO SCH (09:08)
[2022-05-07] MEDS: SYNTHROID 125 MCG PO SCH (09:11)
[2022-05-07] MEDS: NEURONTIN PO SCH ×2 (09:11→21:05)
[2022-05-07] MEDS: PROTONIX 40 MG IV IV SCH (09:11)
[2022-05-07] MEDS: Flonase NASAL NS SCH (09:11)
[2022-05-07] MEDS: ECOTRIN 81 MG PO SCH (09:11)
[2022-05-07] MEDS: ZYLOPRIM 300 MG PO SCH (09:11)
[2022-05-07] MEDS: celeBREX 100 MG PO SCH (09:11)
[2022-05-07] MEDS: DALIRESP PO SCH (09:14)
[2022-05-07] MEDS: ZYVOX PO SCH ×2 (09:20→21:06)
--- NOTE | 2022-05-07 09:52 | PCM.SSS ---
History of Present Illness - Chief Complaint Chief Complaint: severe shortness of breath for few weeks. History of Present Illness: is a 76 year old female.With multiple past medical history of end- stage COPD hypertension hypertensive heart disease with heart failure was recently admitted at other hospital with COPD exacerbation and respiratory failure was discharged to rehab facility but that also she was still very short of breath so pulm rehab facility they sent her to the emergency room at [facility]. In the emergency room patient was extremely short of breath and was requiring higher level of oxygen. According to the family patient has end-stage lung disease and has multiple hospital admission recently. In the emergency room patient was given nebulizer treatment which did make her feel better and then she was transferred to floor. - Review of Systems Constitutional: Weakness, No Fever, No Chills Eyes: No Symptoms Ears, Nose, & Throat: No Symptoms Respiratory: Cough, Orthopnea, Short Of Breath, Wheezing Cardiac: Orthopnea, PND, No Chest Pain, No Edema, No Syncope Abdominal/Gastrointestinal: No Abdominal Pain, No Nausea, No Vomiting, No Diarrhea Genitourinary Symptoms: No Dysuria Musculoskeletal: No Back Pain, No Neck Pain Skin: No Rash Neurological: No Dizziness, No Focal Weakness, No Sensory Changes Psychological: No Symptoms Endocrine: No Symptoms Hematologic/Lymphatic: No Symptoms Immunological/Allergic: No Symptoms Medications & Allergies Home Medications: Home Medication List Albuterol Sulfate [Albuterol Sulfate Hfa] 2 puffs IH Q6HPRN PRN 05/05/22 [History Confirmed 05/06/22] Alendronate Sodium 70 mg PO WEEKLY 05/05/22 [History Confirmed 05/06/22] Allopurinol 300 mg [Zyloprim 300 mg] 300 mg PO DAILY 05/05/22 [History Confirmed 05/06/22] Aspirin 81 mg PO DAILY 05/05/22 [History Confirmed 05/06/22] Atorvastatin Calcium 20 mg PO HS 05/05/22 [History Confirmed 05/06/22] Celecoxib 100 mg [celeBREX 100 MG] 200 mg PO DAILY 05/05/22 [History Confirmed 05/06/22] Cholecalciferol (Vitamin D3) [Vitamin D3] 50 mcg PO DAILY 05/05/22 [History Confirmed 05/06/22] Dicyclomine HCl 20 mg PO UD 05/05/22 [History Confirmed 05/06/22] Fluticasone/Umeclidin/Vilanter [Trelegy Ellipta 100-62.5-25] 1 puff IH DAILY 05/05/22 [History Confirmed 05/06/22] Furosemide 20 mg [Lasix 20 mg] 20 mg PO BID 05/05/22 [History Confirmed 05/06/22] Gabapentin 600 mg PO BID 05/05/22 [History Confirmed 05/06/22] Ipratropium/Albuterol Sulfate [Iprat-Albut 0.5-3(2.5) mg/3 ml] 3 ml IH Q6H PRN PRN 05/05/22 [History Confirmed 05/06/22] Levothyroxine Sodium [Synthroid] 125 mcg PO DAILY 05/05/22 [History Confirmed 05/06/22] Lisinopril 10 mg [Zestril 10 MG] 10 mg PO DAILY 05/05/22 [History Confirmed 05/06/22] Metoprolol Tartrate 25 mg PO BID 05/05/22 [History Confirmed 05/06/22] Prednisone 5 mg [Deltasone 5 mg] 5 mg PO DAILY 05/05/22 [History Confirmed 05/06/22] Roflumilast 500 mcg PO DAILY 05/05/22 [History Confirmed 05/06/22] Tizanidine HCl 4 mg [Zanaflex 4 MG] 4 mg PO Q8H 05/05/22 [History Confirmed 05/06/22] Linezolid [Zyvox] 600 mg PO BID 05/06/22 [History Confirmed 05/06/22] Magnesium Hydroxide 30 ml [Milk of Magnesia 30 ml] 30 ml PO DAILY PRN PRN 05/06/22 [History Confirmed 05/06/22] Montelukast Sodium 10 mg [Singulair 10 MG] 10 mg PO QPM 05/06/22 [History Confirmed 05/06/22] Vitamin E 400 Units [Vitamin E 400 UNIT SOFTGEL] 400 unit PO DAILY 05/06/22 [History Confirmed 05/06/22] Zinc Sulfate 220 mg PO DAILY 05/06/22 [History Confirmed 05/06/22] Allergies/Adverse Reactions: Allergies Allergy/AdvReac Type Severity Reaction Status Date / Time amoxicillin [From Augmentin] Allergy Verified 05/05/22 20:37 clavulanic acid Allergy Verified 05/05/22 20:37 [From Augmentin] - Past Medical History Past Medical History: Yes Cardiac History: Congenital Heart Disease, Hypertension Respiratory History: COPD Endocrine Medical History: Hypothyroidism Comment: chronic kidney disease - Female History Are you now?: No - Past Surgical History Past Surgical History: Yes GI Surgical History: Cholecystectomy - Social History Smoking Status: Unknown if ever smoked Exposure to second hand smoke: No Alcohol: Rarely Drug Use: none - Physical Exam Vital Signs: Vital Signs - 24 hr Temp Pulse Resp BP BP Pulse Ox 05/07/22 07:33 84 18 95 05/07/22 07:29 98.2 F 05/07/22 07:17 76 94 L 05/07/22 04:00 76 05/07/22 03:00 97.5 F 77 18 85/49 98 05/07/22 00:01 70 05/06/22 23:00 73 18 66/32 05/06/22 22:45 73 18 67/40 05/06/22 22:41 77 20 91/45 99 05/06/22 22:40 79 26 H 69/40 100 05/06/22 22:00 105 H 22 120/80 05/06/22 21:00 114 H 26 H 127/85 05/06/22 20:00 97.7 F 108 H 24 121/66 136/77 96 05/06/22 19:50 102 H 30 H 95 05/06/22 18:54 94 H 136/77 05/06/22 18:00 92 H 05/06/22 17:00 96 H 155/75 05/06/22 16:00 90 22 126/74 96 05/06/22 15:59 92 H 22 126/74 05/06/22 15:01 94 H 26 H 135/50 05/06/22 14:23 98 H 24 133/81 05/06/22 13:47 97 05/06/22 13:03 107 H 24 108/53 05/06/22 12:00 123 H 22 110/70 100 05/06/22 11:27 126 H 110/55 05/06/22 10:14 115 H 20 91 L 05/06/22 10:00 116 H 18 129/96 100 General Appearance: moderate distress, alert Neurologic Exam: alert, oriented x 3, cooperative, normal mood/affect, nml cerebellar function, nml station & gait, sensation nml, No motor deficits Eye Exam: PERRL/EOMI, eyes nml inspection Ears, Nose, Throat Exam: normal ENT inspection, TMs normal, pharynx normal, moist mucous membranes Neck Exam: normal inspection, non-tender, supple, full range of motion, midline tenderness Respiratory Exam: normal breath sounds, respiratory distress, diminished breath sounds, accessory muscle use Cardiovascular Exam: regular rate/rhythm, normal heart sounds, normal peripheral pulses Gastrointestinal/Abdomen Exam: soft, normal bowel sounds, No tenderness, No mass Back Exam: normal inspection, normal range of motion, No CVA tenderness, No brandi tebral tenderness Extremity Exam: normal inspection, normal range of motion, pelvis stable Skin Exam: normal color, warm, dry, No rash Wound Assessment: Skin/Wound Assessment Wound/Incision Assessment Start: 05/06/22 09:53 Text: Status: Active Freq: Q6H Protocol: Document 05/07/22 07:17 (Rec: 05/07/22 07:18 [id number]) Wound/Incision Assessment Right Knee Wound Assessment Shift Assessment Wound Type see comment Comment ortho says wound is septic bursitis and pt should be on zyvox for 14days begining on april 29. Lymphatic Exam: No adenopathy Results - Labs Lab/Micro Results: Lab Results-Last 24 Hours 05/06/22 05/06/22 05/07/22 Range/Units 08:40 12:34 05:20 WBC 6.3 (4.0-10.5) x10^3/uL RBC 2.94 L (4.1-5.4) x10^6/uL Hgb 8.0 L (12.0-16.0) g/dL Hct 28.5 L (35-47) % MCV 96.9 (78-100) fL MCH 27.2 (26-32) pg MCHC 28.1 L (32-36) g/dL RDW 17.8 H (11.5-14.0) % Plt Count 190 (150-450) x10^3/uL MPV 9.6 (7.5-11.0) fL Gran % 92.8 H (36.0-66.0) % Immature Gran % (Auto) 0.8 H (0.00-0.4) % Nucleat RBC Rel Count 0.6 H (0.00-0.1) % Eos # (Auto) 0 (0-0.5) x10^3/uL Immature Gran # (Auto) 0.05 H (0.00-0.03) x10^3u/L Absolute Lymphs (auto) 0.27 L (1.0-4.6) x10^3/uL Absolute Monos (auto) 0.13 (0.0-1.3) x10^3/uL Absolute Nucleated RBC 0.04 H (0.00-0.01) x10^3u/L Lymphocytes % 4.3 L (24.0-44.0) % Monocytes % 2.1 (0.0-12.0) % Eosinophils % 0.0 (0.00-5.0) % Basophils % 0.0 (0.0-0.4) % Absolute Granulocytes 5.84 (1.4-6.9) x10^3/uL Basophils # 0 (0-0.4) x10^3/uL Sodium 128 L (137-145) mmol/L Potassium 4.9 (3.5-5.1) mmol/L Chloride 89 L D (98-107) mmol/L Carbon Dioxide 34 H (22-30) mmol/L Anion Gap 10.1 (5-15) MEQ/L BUN 18 H (7-17) mg/dL Creatinine 0.91 (0.52-1.04) mg/dL Estimated GFR > 60.0 ML/MIN Glucose 171 H (74-106) mg/dL Calcium 8.2 L (8.4-10.2) mg/dL Magnesium 1.6 (1.6-2.3) mg/dL Total Bilirubin (0.2-1.3) mg/dL AST (14-36) U/L ALT (0-35) U/L Alkaline Phosphatase (38-126) U/L NT-Pro-B Natriuret Pep 1800 (0-1800) pg/mL Serum Total Protein (6.3-8.2) g/dL Albumin (3.5-5.0) g/dL Slides for Path Review YES 05/07/22 Range/Units 05:20 WBC (4.0-10.5) x10^3/uL RBC (4.1-5.4) x10^6/uL Hgb (12.0-16.0) g/dL Hct (35-47) % MCV (78-100) fL MCH (26-32) pg MCHC (32-36) g/dL RDW (11.5-14.0) % Plt Count (150-450) x10^3/uL MPV (7.5-11.0) fL Gran % (36.0-66.0) % Immature Gran % (Auto) (0.00-0.4) % Nucleat RBC Rel Count (0.00-0.1) % Eos # (Auto) (0-0.5) x10^3/uL Immature Gran # (Auto) (0.00-0.03) x10^3u/L Absolute Lymphs (auto) (1.0-4.6) x10^3/uL Absolute Monos (auto) (0.0-1.3) x10^3/uL Absolute Nucleated RBC (0.00-0.01) x10^3u/L Lymphocytes % (24.0-44.0) % Monocytes % (0.0-12.0) % Eosinophils % (0.00-5.0) % Basophils % (0.0-0.4) % Absolute Granulocytes (1.4-6.9) x10^3/uL Basophils # (0-0.4) x10^3/uL Sodium 132 L (137-145) mmol/L Potassium 5.0 (3.5-5.1) mmol/L Chloride 94 L (98-107) mmol/L Carbon Dioxide 36 H (22-30) mmol/L Anion Gap 8.0 (5-15) MEQ/L BUN 18 H (7-17) mg/dL Creatinine 0.83 (0.52-1.04) mg/dL Estimated GFR > 60.0 ML/MIN Glucose 179 H (74-106) mg/dL Calcium 7.6 L (8.4-10.2) mg/dL Magnesium (1.6-2.3) mg/dL Total Bilirubin 0.30 (0.2-1.3) mg/dL AST 25 (14-36) U/L ALT 24 (0-35) U/L Alkaline Phosphatase 71 (38-126) U/L NT-Pro-B Natriuret Pep (0-1800) pg/mL Serum Total Protein 5.9 L (6.3-8.2) g/dL Albumin 3.4 L (3.5-5.0) g/dL Slides for Path Review Microbiology 05/05/22 22:30 Blood Culture - Preliminary Blood NO GROWTH TO DATE 05/05/22 20:30 Blood Culture - Preliminary Blood NO GROWTH TO DATE - Radiology Impressions Radiology Exams & Impressions: Radiology Procedures Category Date Time Status CHEST 1 VIEW (PORTABLE) Stat Exams 05/05/22 20:18 Completed CHEST WITH CONTRAST [CT] Stat Exams 05/05/22 22:13 Completed - Other Procedures and Tests Respiratory Therapy 05/06/22 10:14 Oxygen NASAL CANNULA 5 lpm Respiratory Therapy Assessment DAILY Assessment/Plan (1) Respiratory failure Current Visit: Yes Status: Acute Qualifiers: Chronicity: acute on chronic Respiratory failure complication: hypoxia and hypercapnia Qualified Code(s): J96.21 - Acute and chronic respiratory failure with hypoxia; J96.22 - Acute and chronic respiratory failure with hypercapnia; J96.22 - Acute and chronic respiratory failure with hypercapnia Assessment & Plan: Chief Complaint Diagnosis Respiratory failure Allergies Allergy/AdvReac Type Severity Reaction Status Date / Time amoxicillin [From Augmentin] Allergy Verified 05/05/22 20:37 clavulanic acid Allergy Verified 05/05/22 20:37 [From Augmentin] Vital Signs (Last 24 hours) Temp Pulse Resp BP BP Pulse Ox 05/07/22 07:33 84 18 95 05/07/22 07:29 98.2 F 05/07/22 07:17 76 94 L 05/07/22 04:00 76 05/07/22 03:00 97.5 F 77 18 85/49 98 05/07/22 00:01 70 05/06/22 23:00 73 18 66/32 05/06/22 22:45 73 18 67/40 05/06/22 22:41 77 20 91/45 99 05/06/22 22:40 79 26 H 69/40 100 05/06/22 22:00 105 H 22 120/80 05/06/22 21:00 114 H 26 H 127/85 05/06/22 20:00 97.7 F 108 H 24 121/66 136/77 96 05/06/22 19:50 102 H 30 H 95 05/06/22 18:54 94 H 136/77 05/06/22 18:00 92 H 05/06/22 17:00 96 H 155/75 05/06/22 16:00 90 22 126/74 96 05/06/22 15:59 92 H 22 126/74 05/06/22 15:01 94 H 26 H 135/50 05/06/22 14:23 98 H 24 133/81 05/06/22 13:47 97 05/06/22 13:03 107 H 24 108/53 05/06/22 12:00 123 H 22 110/70 100 05/06/22 11:27 126 H 110/55 05/06/22 10:14 115 H 20 91 L 05/06/22 10:00 116 H 18 129/96 100 Home Medications Medication Instructions Recorded Confirmed Last Taken Type Albuterol Sulfate [Albuterol 2 puffs IH Q6HPRN PRN 05/05/22 05/06/22 05/06/22 History Sulfate Hfa] Alendronate Sodium 70 mg PO WEEKLY 05/05/22 05/06/22 04/30/22 History Allopurinol 300 mg [Zyloprim 300 mg PO DAILY 05/05/22 05/06/22 05/04/22 History 300 mg] Aspirin 81 mg PO DAILY 05/05/22 05/06/22 05/04/22 History Atorvastatin Calcium 20 mg PO HS 05/05/22 05/06/22 05/04/22 History Celecoxib 100 mg [celeBREX 100 200 mg PO DAILY 05/05/22 05/06/22 05/04/22 History MG] Cholecalciferol (Vitamin D3) 50 mcg PO DAILY 05/05/22 05/06/22 05/04/22 History [Vitamin D3] Dicyclomine HCl 20 mg PO UD 05/05/22 05/06/22 05/04/22 History Fluticasone/Umeclidin/Vilanter 1 puff IH DAILY 05/05/22 05/06/22 05/06/22 History [Trelegy Ellipta 100-62.5-25] Furosemide 20 mg [Lasix 20 20 mg PO BID 05/05/22 05/06/22 05/04/22 History mg] Gabapentin 600 mg PO BID 05/05/22 05/06/22 05/04/22 History Ipratropium/Albuterol Sulfate 3 ml IH Q6H PRN PRN 05/05/22 05/06/22 05/05/22 History [Iprat-Albut 0.5-3(2.5) mg/3 ml] Levothyroxine Sodium [Synthroid] 125 mcg PO DAILY 05/05/22 05/06/22 05/04/22 History Lisinopril 10 mg [Zestril 10 10 mg PO DAILY 05/05/22 05/06/22 05/04/22 History MG] Metoprolol Tartrate 25 mg PO BID 05/05/22 05/06/22 05/04/22 History Prednisone 5 mg [Deltasone 5 5 mg PO DAILY 05/05/22 05/06/22 05/04/22 History mg] Roflumilast 500 mcg PO DAILY 05/05/22 05/06/22 05/04/22 History Tizanidine HCl 4 mg [Zanaflex 4 4 mg PO Q8H 05/05/22 05/06/22 05/04/22 History MG] Linezolid [Zyvox] 600 mg PO BID 05/06/22 05/06/22 05/04/22 History Magnesium Hydroxide 30 ml [Milk 30 ml PO DAILY PRN PRN 05/06/22 05/06/22 Unknown History of Magnesia 30 ml] Montelukast Sodium 10 mg 10 mg PO QPM 05/06/22 05/06/22 05/03/22 History [Singulair 10 MG] Vitamin E 400 Units [Vitamin E 400 unit PO DAILY 05/06/22 05/06/22 05/04/22 History 400 UNIT SOFTGEL] Zinc Sulfate 220 mg PO DAILY 05/06/22 05/06/22 05/04/22 History Current Medications Generic Name Dose Route Start Last Admin Trade Name Freq PRN Reason Stop Dose Admin Albuterol Sulfate 2 puff 05/06/22 10:49 Albuterol Common Canister Inhaler 06/05/22 10:48 Q6HPRN PRN SHORTNESS OF BREATH/WHEEZING Albuterol/Ipratropium 3 ml 05/06/22 10:15 05/06/22 09:55 Ipratropium/Albuterol Sulfate 3 Ml Ampul.Neb 06/05/22 10:14 3 ml Q4HPRN PRN Administration SHORTNESS OF BREATH/WHEEZING Alendronate Sodium 70 mg 05/07/22 06:00 Alendronate Sodium 70 Mg Tablet PO 06/06/22 05:59 WEEKLY CHRISTY Allopurinol 300 mg 05/06/22 12:00 05/07/22 09:11 Allopurinol 300 Mg Tablet PO 06/05/22 11:59 300 mg DAILY CHRISTY Administration Aspirin 81 mg 05/06/22 12:00 05/07/22 09:11 Aspirin 81 Mg Tablet.Ec PO 06/05/22 11:59 81 mg DAILY CHRISTY Administration Celecoxib 200 mg 05/06/22 12:00 05/07/22 09:11 Celecoxib 100 Mg Capsule PO 06/05/22 11:59 200 mg DAILY CHRISTY Administration Cholecalciferol 2,000 unit 05/06/22 12:00 05/07/22 09:08 Cholecalciferol (Vitamin D3) 1000 Unit Tablet PO 06/05/22 11:59 Not Given DAILY CHRISTY Methylprednisolone Sodium 0 mg 05/06/22 12:00 05/07/22 06:05 Succinate 60 mg/ Sterile Water IV 06/05/22 11:59 60 mg 2 ml Q6HT CHRISTY Administration Dicyclomine HCl 20 mg 05/06/22 11:30 05/07/22 07:19 Dicyclomine Hcl 20 Mg Tablet PO 06/05/22 11:29 Not Given AC CHRISTY Enoxaparin Sodium 40 mg 05/06/22 13:00 05/07/22 09:08 Enoxaparin Sodium 40 Mg/0.4 Ml Syringe SQ 06/05/22 12:59 Not Given DAILY CHRISTY Fluticasone Propionate 0 gm 05/07/22 10:00 05/07/22 09:11 Fluticasone Propionate 16 Gm Bottle Nasal Vance NS 06/06/22 09:59 1 gm DAILY CHRISTY Administration Furosemide 20 mg 05/06/22 17:00 05/07/22 09:08 Furosemide 20 Mg Tablet PO 06/05/22 16:59 Not Given BID DIURETIC CHRISTY Gabapentin 600 mg 05/06/22 12:00 05/07/22 09:11 Gabapentin 300 Mg Capsule PO 06/05/22 11:59 600 mg BID CHRISTY Administration Norepinephrine/Dextrose 8 mg in 250 mls @ 15 mls/hr 05/05/22 23:27 05/06/22 10:00 Norepinephrine 8 Mg/250 Ml-D5w IV 06/04/22 23:26 0 mcg/min .[id number] PRN 0 mls/hr HYPOTENSION Titration Protocol 8 MCG/MIN Diltiazem HCl 100 mls @ 5 mls/hr 05/06/22 12:22 05/06/22 23:00 Cardizem Drip 100 Mg/100 Ml D5w IV 06/05/22 12:21 Infused .Q20H PRN Titration HEART RATE/ A-FIB Protocol 5 MG/HR Sodium Chloride 1,000 mls @ 50 mls/hr 05/06/22 14:45 05/07/22 06:06 Sodium Chloride 0.9% 1000 Ml IV 06/05/22 14:44 50 mls/hr .Q20H CHRISTY Administration Insulin Human Lispro 0 unit 05/06/22 09:24 Insulin Lispro 1 Unit SQ 06/05/22 09:23 UD PRN HYPERGLYCEMIA Levothyroxine Sodium 125 mcg 05/06/22 12:00 05/07/22 09:11 Levothyroxine Sodium 125 Mcg Tablet PO 06/05/22 11:59 125 mcg DAILY CHRISTY Administration Linezolid 600 mg 05/06/22 22:00 05/07/22 09:20 Linezolid 600 Mg Tablet PO 06/05/22 21:59 600 mg BID CHRISTY Administration Lisinopril 10 mg 05/06/22 12:00 05/07/22 09:07 Lisinopril 10 Mg Tablet PO 06/05/22 11:59 Not Given DAILY CHRISTY Lorazepam 1 mg 05/07/22 01:07 Lorazepam 2 Mg/1 Ml 2 Mg Vial IV 06/06/22 01:05 Q4H PRN PRN ANXIETY Magnesium Hydroxide 30 ml 05/06/22 10:49 Magnesium Hydroxide 30 Ml Udcup PO 06/05/22 10:48 DAILY PRN PRN CONSTIPATION Metoprolol Tartrate 25 mg 05/06/22 12:00 05/07/22 09:08 Metoprolol Tartrate 25 Mg Tab PO 06/05/22 11:59 Not Given BID CHRISTY Miscellaneous Information 1 each 05/06/22 11:15 Medication Intervention 1 Each Each 06/05/22 11:14 .RN TO CHECK CHRISTY Montelukast Sodium 10 mg 05/06/22 22:00 05/06/22 21:15 Montelukast Sodium 10 Mg Tablet PO 06/05/22 21:59 10 mg QPM CHRISTY Administration Pantoprazole Sodium 40 mg 05/06/22 10:00 05/07/22 09:11 Pantoprazole 40 Mg Vial IV 06/05/22 09:59 40 mg Q24H10 CHRISTY Administration Roflumilast 500 mcg 05/06/22 12:00 05/07/22 09:14 Roflumilast 500 Mcg Tablet PO 06/05/22 11:59 500 mcg DAILY CHRISTY Administration Fluticasone/Salmeterol 2 puff 05/06/22 19:00 05/07/22 07:12 Fluticasone/Salmeterol 115/21 - 120 Puff Common Canister IH 06/05/22 18:59 Not Given BIDRT CHRISTY Simvastatin 20 mg 05/06/22 22:00 05/06/22 21:15 Simvastatin 20 Mg Tablet PO 06/05/22 21:59 20 mg HS CHRISTY Administration Sodium Chloride 1 ml 05/07/22 07:15 Sodium Chloride Nasal Vance 45 Ml Bottle NS 06/05/22 21:08 Q6HPRN PRN Dry Nose Tizanidine HCl 4 mg 05/06/22 14:00 05/07/22 06:06 Tizanidine Hcl 4 Mg Tablet PO 06/05/22 13:59 4 mg Q8HT CHRISTY Administration Vitamin E 400 u 05/06/22 12:00 05/07/22 09:07 Vitamin E 400 Iu Softgel PO 06/05/22 11:59 Not Given DAILY CHRISTY Zinc Gluconate 50 mg 05/06/22 12:00 05/07/22 09:07 Zinc Gluconate 50 Mg Tablet PO 06/05/22 11:59 Not Given DAILY CHRISTY Discontinued Medications Generic Name Dose Route Start Last Admin Trade Name Freq PRN Reason Stop Dose Admin Albuterol/Ipratropium 3 ml 05/06/22 13:00 Ipratropium/Albuterol Sulfate 3 Ml Ampul.Neb 06/05/22 12:59 Q6HRT CHRISTY Albuterol/Ipratropium Confirm 05/06/22 09:57 Ipratropium/Albuterol Sulfate 3 Ml Ampul.Neb Administered 05/06/22 09:58 Dose 3 ml IH .STK-MED ONE Albuterol/Ipratropium 3 ml 05/06/22 10:49 Ipratropium/Albuterol Sulfate 3 Ml Ampul.Neb 06/05/22 10:48 Q6H PRN PRN SHORTNESS OF BREATH/WHEEZING Aspirin 81 mg 05/07/22 10:00 Aspirin 81 Mg Tab.Chew PO 06/06/22 09:59 DAILY CHRISTY Fluticasone Propionate Confirm 05/06/22 17:17 Fluticasone Propionate 16 Gm Bottle Nasal Vance Administered 05/06/22 17:18 Dose 16 gm NS .STK-MED ONE Furosemide 40 mg 05/05/22 20:55 05/05/22 21:09 Furosemide 40 Mg/4 Ml Vial IV 05/05/22 20:56 40 mg STAT ONE Administration Furosemide Confirm 05/05/22 21:08 Furosemide 40 Mg/4 Ml Vial Administered 05/05/22 21:09 Dose 40 mg .ROUTE .STK-MED ONE Sodium Chloride 1,000 mls @ 999 mls/hr 05/05/22 20:42 05/05/22 22:21 Sodium Chloride 0.9% 1000 Ml IV 05/05/22 21:42 Infused .Q1H1M STA Infusion Sodium Chloride Confirm 05/05/22 20:46 Sodium Chloride 0.9% 1000 Ml Administered 05/05/22 20:47 Dose 1,000 mls @ ud .ROUTE .STK-MED ONE Sodium Chloride 1,000 mls @ 999 mls/hr 05/05/22 22:01 05/05/22 23:26 Sodium Chloride 0.9% 1000 Ml IV 05/05/22 23:01 Infused .Q1H1M STA Infusion Sodium Chloride Confirm 05/05/22 22:02 Sodium Chloride 0.9% 1000 Ml Administered 05/05/22 22:03 Dose 1,000 mls @ ud .ROUTE .STK-MED ONE Ceftriaxone Sodium/Dextrose 1 g in 50 mls @ 100 mls/hr 05/05/22 22:19 05/05/22 23:25 Rocephin 1 Gm-D5w 50 Ml Bag IV 05/05/22 22:48 Infused STAT STA Infusion Ceftriaxone Sodium/Dextrose Confirm 05/05/22 22:25 Rocephin 1 Gm-D5w 50 Ml Bag Administered 05/05/22 22:26 Dose 1 g in 50 mls @ ud IV .STK-MED ONE Sodium Chloride 1,000 mls @ 999 mls/hr 05/05/22 23:26 05/06/22 07:06 Sodium Chloride 0.9% 1000 Ml IV 05/06/22 00:26 Infused .Q1H1M STA Infusion Sodium Chloride Confirm 05/05/22 23:30 Sodium Chloride 0.9% 1000 Ml Administered 05/05/22 23:31 Dose 1,000 mls @ ud .ROUTE .STK-MED ONE Azithromycin 500 mg in 250 mls @ 250 mls/hr 05/06/22 00:40 05/06/22 02:10 Zithromax 500 Mg/ 250 Ml Nacl Premix IV 05/06/22 01:39 Infused STAT STA Infusion Azithromycin Confirm 05/06/22 00:57 Zithromax 500 Mg/ 250 Ml Nacl Premix Administered 05/06/22 00:58 Dose 500 mg in 250 mls @ ud IV .STK-MED ONE Sodium Chloride 1,000 mls @ 100 mls/hr 05/06/22 06:15 05/06/22 06:19 Sodium Chloride 0.9% 1000 Ml IV 06/05/22 06:14 100 mls/hr .Q10H CHRISTY Administration Ceftriaxone Sodium/Dextrose 2 g in 50 mls @ 100 mls/hr 05/06/22 09:24 05/06/22 09:58 Rocephin 2 Gm-D5w 50ml Bag IV 05/06/22 09:53 Not Given STAT STA Azithromycin 500 mg in 250 mls @ 250 mls/hr 05/06/22 09:24 05/06/22 09:58 Zithromax 500 Mg/ 250 Ml Nacl Premix IV 05/06/22 10:23 Not Given STAT STA Lorazepam 1 mg 05/06/22 18:59 Lorazepam 2 Mg/1 Ml 2 Mg Vial IV 06/05/22 18:58 Q6H PRN PRN ANXIETY Methylprednisolone Sodium Succinate Confirm 05/06/22 17:21 Methylprednis Sod Succ 125 Mg/2 Ml Vial Administered 05/06/22 17:22 Dose 125 mg .ROUTE .STK-MED ONE Sodium Chloride 1 ml 05/06/22 21:09 05/06/22 21:15 Sodium Chloride Nasal Vance 45 Ml Bottle NS 06/05/22 21:08 1 ml Q6H PRN Administration Dry Nose Intake & Output (Last 24 hours) 05/04/22 05/05/22 05/06/22 05/07/22 11:59 11:59 11:59 11:59 Intake Total 635 Output Total 2050 Balance -1415 Weight 91.5 kg 91.5 kg Microbiology Results (Last 24 hours) 05/05/22 22:30 Blood Blood Culture Gram Stain - Pending 05/05/22 22:30 Blood Blood Culture - Preliminary NO GROWTH TO DATE 05/05/22 20:30 Blood Blood Culture Gram Stain - Pending 05/05/22 20:30 Blood Blood Culture - Preliminary NO GROWTH TO DATE Laboratory Results (Last 24 hours) 05/07/22 05/07/22 05/06/22 05:20 05:20 12:34 WBC 6.3 RBC 2.94 L Hgb 8.0 L Hct 28.5 L MCV 96.9 MCH 27.2 MCHC 28.1 L RDW 17.8 H Plt Count 190 MPV 9.6 Gran % 92.8 H Immature Gran % (Auto) 0.8 H Nucleat RBC Rel Count 0.6 H Eos # (Auto) 0 Immature Gran # (Auto) 0.05 H Absolute Lymphs (auto) 0.27 L Absolute Monos (auto) 0.13 Absolute Nucleated RBC 0.04 H Lymphocytes % 4.3 L Monocytes % 2.1 Eosinophils % 0.0 Basophils % 0.0 Absolute Granulocytes 5.84 Basophils # 0 Sodium 132 L Potassium 5.0 Chloride 94 L Carbon Dioxide 36 H Anion Gap 8.0 BUN 18 H Creatinine 0.83 Estimated GFR > 60.0 Glucose 179 H Calcium 7.6 L Magnesium 1.6 Total Bilirubin 0.30 AST 25 ALT 24 Alkaline Phosphatase 71 NT-Pro-B Natriuret Pep Serum Total Protein 5.9 L Albumin 3.4 L Slides for Path Review YES 05/06/22 08:40 WBC RBC Hgb Hct MCV MCH MCHC RDW Plt Count MPV Gran % Immature Gran % (Auto) Nucleat RBC Rel Count Eos # (Auto) Immature Gran # (Auto) Absolute Lymphs (auto) Absolute Monos (auto) Absolute Nucleated RBC Lymphocytes % Monocytes % Eosinophils % Basophils % Absolute Granulocytes Basophils # Sodium 128 L Potassium 4.9 Chloride 89 L D Carbon Dioxide 34 H Anion Gap 10.1 BUN 18 H Creatinine 0.91 Estimated GFR > 60.0 Glucose 171 H Calcium 8.2 L Magnesium Total Bilirubin AST ALT Alkaline Phosphatase NT-Pro-B Natriuret Pep 1800 Serum Total Protein Albumin Slides for Path Review Orders (Last 24 hours) Category Date Time Status Bedrest ROUTINE Activity 05/06/22 09:24 Active Up With Assistance ROUTINE Activity 05/06/22 09:24 Active Admit as Inpatient ROUTINE Care 05/06/22 09:24 Active Call Admit Doctor for Orders ON ADMISSION Care 05/06/22 09:24 Active Fall Protocol Q1H Care 05/06/22 09:24 Active IV Care Q6H Care 05/06/22 09:24 Active Neuro Checks Q4H Care 05/06/22 09:24 Active Stan Carballo ROUTINE Care 05/06/22 09:24 Active Telemetry q6h Care 05/06/22 09:18 Completed Weight,Daily 0600 Care 05/06/22 09:24 Active Consistent Carbohydrate Diet 1800 Calorie Diet 05/06/22 Lunch Active CBC W DIFF AM.LAB Lab 05/07/22 05:20 Completed CMP AM.LAB Lab 05/07/22 05:20 Completed MAGNESIUM Routine Lab 05/06/22 12:34 Completed Albuterol Common Canister [Ventolin Common Canister* Med 05/06/22 10:49 Active ] 2 puff IH Q6HPRN PRN Albuterol/Ipratropium 3ml Neb* [DUONEB 0.5-3 MG/3 ml Med 05/06/22 09:57 Discontinued Neb] 3 ml IH .STK-MED ONE Albuterol/Ipratropium 3ml Neb* [DUONEB 0.5-3 MG/3 ml Med 05/06/22 10:15 Active Neb] 3 ml IH Q4HPRN PRN Albuterol/Ipratropium 3ml Neb* [DUONEB 0.5-3 MG/3 ml Med 05/06/22 10:49 Discontinued Neb] 3 ml IH Q6H PRN PRN Albuterol/Ipratropium 3ml Neb* [DUONEB 0.5-3 MG/3 ml Med 05/06/22 13:00 Discontinued Neb] 3 ml IH Q6HRT Alendronate Sodium 70 mg [Fosamax 70 MG] Med 05/07/22 06:00 Active 70 mg PO WEEKLY Allopurinol 300 mg [Zyloprim 300 mg] Med 05/06/22 12:00 Active 300 mg PO DAILY Aspirin 81 gm Chew [Baby Aspirin 81 mg Chew] Med 05/07/22 10:00 Disco ntinued 81 mg PO DAILY Aspirin EC 81 mg [Ecotrin 81 mg] Med 05/06/22 12:00 Active 81 mg PO DAILY Azithromycin 500 mg/250 ml [Zithromax 500 MG/ 250 ML Med 05/06/22 09:24 Discontinued NaCl Premix] 500 mg in 250 ml IV STAT Ceftriaxone 2 GM/50 ML PREMIX* [ROCEPHIN 2 Gm-D5w 50ML Med 05/06/22 09:24 Discontinued BAG] 2 g in 50 ml IV STAT Celecoxib 100 mg [celeBREX 100 MG] Med 05/06/22 12:00 Active 200 mg PO DAILY Cholecalciferol (Vitamin D3) [Vitamin D] Med 05/06/22 12:00 Active 2,000 unit PO DAILY Dicyclomine HCl 20 mg [Bentyl 20 mg] Med 05/06/22 11:30 Active 20 mg PO AC Diltiazem HCl 100 mg/100 ml [Cardizem Drip 100 mg/100 Med 05/06/22 12:22 Hold ml D5w] 100 ml IV 5 mg/hr Enoxaparin Sodium [Enoxaparin Sodium] Med 05/06/22 13:00 Active 40 mg SQ DAILY Fluticasone Propionate [Flonase NASAL] Med 05/06/22 17:17 Discontinued 16 gm NS .STK-MED ONE Fluticasone Propionate [Flonase NASAL] Med 05/07/22 10:00 Active See Dose Instructions NS DAILY Fluticasone/Salmeterol 115/21 [Advair Hfa 115/21 Common Med 05/06/22 19:00 Active canister*] 2 puff IH BIDRT Furosemide 20 mg [Lasix 20 mg] Med 05/06/22 17:00 Active 20 mg PO BID DIURETIC Gabapentin [Neurontin ] Med 05/06/22 12:00 Active 600 mg PO BID Insulin Lispro [Humalog] Med 05/06/22 09:24 Active See Dose Instructions SQ UD PRN Levothyroxine Sodium 125 Mcg [Synthroid 125 Mcg] Med 05/06/22 12:00 Active 125 mcg PO DAILY Linezolid [Zyvox] Med 05/06/22 22:00 Active 600 mg PO BID Lisinopril 10 mg [Zestril 10 MG] Med 05/06/22 12:00 Active 10 mg PO DAILY Lorazepam 2 mg/1 ml [Ativan 2 MG/1 ML VIAL] Med 05/07/22 01:07 Active 1 mg IV Q4H PRN PRN Lorazepam 2 mg/1 ml [Ativan 2 MG/1 ML VIAL] Med 05/06/22 18:59 Discontinued 1 mg IV Q6H PRN PRN Magnesium Hydroxide 30 ml [Milk of Magnesia 30 ml Med 05/06/22 10:49 Active ] 30 ml PO DAILY PRN PRN Medication Intervention Med 05/06/22 11:15 Active 1 each MC .RN TO CHECK Methylprednis Sod Succ 125 mg* [solu-MEDROL] Med 05/06/22 17:21 Discontinued 125 mg .ROUTE .STK-MED ONE Methylprednis Sod Succ 125 mg* [solu-MEDROL] 60 mg Med 05/06/22 12:00 Active Water For Injection,Sterile [Sterile H2O 10 ml] 2 ml IV Q6HT Metoprolol Tartrate 25 mg [Lopressor 25MG Tab] Med 05/06/22 12:00 Active 25 mg PO BID Montelukast Sodium 10 mg [Singulair 10 MG] Med 05/06/22 22:00 Active 10 mg PO QPM NaCl 0.9% 1000 ml [Sodium Chloride 0.9% 1000 ML] 1,000 Med 05/06/22 14:45 Active ml IV 50 mls/hr Pantoprazole 40 mg [Protonix 40 mg IV] Med 05/06/22 10:00 Active 40 mg IV Q24H10 Roflumilast [Daliresp] Med 05/06/22 12:00 Active 500 mcg PO DAILY Simvastatin 20Mg [Zocor 20Mg] Med 05/06/22 22:00 Active 20 mg PO HS Sodium Chloride Nasal Vance [OCEAN Nasal Vance] Med 05/06/22 21:09 Discontinued 1 ml NS Q6H PRN Sodium Chloride Nasal Vance [OCEAN Nasal Vance] Med 05/07/22 07:15 Active 1 ml NS Q6HPRN PRN Tizanidine HCl 4 mg [Zanaflex 4 MG] Med 05/06/22 14:00 Active 4 mg PO Q8HT Vitamin E 400 Units [Vitamin E 400 UNIT SOFTGEL] Med 05/06/22 12:00 Active 400 u PO DAILY Zinc Gluconate 50 mg [Zinc Gluconate 50 MG] Med 05/06/22 12:00 Active 50 mg PO DAILY PT Eval & Treat (MD Order) ONCE PT 05/08/22 08:00 Active BiPap/CPAP ROUTINE RT 05/06/22 10:17 Completed Oxygen NASAL CANNULA 5 lpm RT 05/06/22 10:14 Active Pulse Oximetry .continuos RT 05/06/22 10:14 Active Respiratory Therapy Assessment DAILY RT 05/06/22 10:14 Active Patient Care Notes (Last 24 hours) 05/07/22 08:53 Nursing Note by Angie Kapadia DR ON PT. PT IN AGREEMENT WITH PLAN TO DC HOME TODAY WITH HOSPICE/PALLIATIVE CARE. Initialized on 05/07/22 08:53 - END OF NOTE 05/07/22 01:10 Nursing Note by Jana Avendaño Notified RT Rajinder of update on the patient's care. Notified her that the patient's family wishes to pursue palliative care at this time. She verbalized understanding. Initialized on 05/07/22 01:10 - END OF NOTE 05/07/22 01:00 (created 05/07/22 01:07) Nursing Note by Jana Avendaño Called and spoke with Dr Tabares at this time. Notified him that the patient's family wish to pursue palliative care at this time. Received orders to d/c telem etry at this time and increase Ativan from every 6 hours to every 4 hours as needed. No other orders at this time. Initialized on 05/07/22 01:07 - END OF NOTE 05/07/22 00:52 Nursing Note by Jana Avendaño Patient's daughter and arrived at the hospital. Updated them on the patient's current condition. The and daughter both agreed at this time, to turn to palliative measures and keep the patient comfortable. They do not want to do aggressive medication management. The stated that he wants to make sure that he follows the patient's wishes at this time.Will call and notify the Dr long wall shear operator ( Dr Tabares) about the family's decision. Initialized on 05/07/22 00:52 - END OF NOTE 05/06/22 23:56 Nursing Note by Jana Avendaño Patient's blood pressure continues to decrease, patient is no longer responding at this time. Reading 40's/20[address] web content coordinator (Dr Tabares) at this time. Updated Dr on patient's condition. Discussed patients code status at this time. He stated to contact the patient's family and notify them of the patient's condition. Asked if he would like to start her back on the levophed drip. Responded not at this time. Contacted the patient's family and spoke with Myrtle the patient's daughter and the patient's . Notified them that the patient's blood pressures have lowered and that she is lethargic and unable to arouse. She stated that they would come back to the hospital. Initialized on 05/06/22 23:56 - END OF NOTE 05/06/22 23:19 Nursing Note by Jana Avendaño Went to do hourly check on patient, upon taking patient's blood pressure in her right arm her pressure was 69/40. Rechecked on left arm reading was 91/45. Noted that the patient's heart rate was in the 70's at this time and that there are noted P waves on the monitor. Rhythm also regular with noted PAC's. Asked the patient how she felt. She stated that she was just tired and wished to sleep. She denies shortness of breath, dizziness, chest pain. Patient was able to answer all questions correctly and was able to follow commands at this time. Retrieved a manual blood pressure cuff and rechecked. Reading was 67/40. Paused the cardizem gtt at this time and contacted long wall shear operator ( Dr Tabares). Notified him of the patient's pressure he stated to stop the cardizem gtt at this time. Notified him that the patient is in sinus rhythm at this time. Notified him that the patient is asymptomatic and that she is talking and alert and oriented. Notified him that the patient received metoprolol at bedtime. Her again verbalized understanding and stated to watch the patient for now and turn off the gtt. Asked if there was any other medication at this time he would like to give the patient and he stated not at this time. Initialized on 05/06/22 23:19 - END OF NOTE 05/06/22 21:29 (created 05/06/22 21:35) Nursing Note by Jana Avendaño Contacted [facility] and spoke with Luz. Notified her that at this time the patient and the patient's family do not want to pursue transferring to [place]. She stated that she would make a note and notify [facility] that they can close the case. Initialized on 05/06/22 21:35 - END OF NOTE 05/06/22 21:00 (created 05/06/22 21:32) Nursing Note by Jana Avendaño Patient's daughter arrived. Spoke with patient and daughter and stated they would like for her to just stay here at this time. Patient is able to be managed. Daughter stated that she would like to look into a different rehab facility that is closer to [place], [place]. This is where the patient and her lives at this time. Patient's daughter Myrtle stated that he father is having a hard time taking care of her at home because she keeps falling. She states that she wouldn't mind looking into usp vs hospice at this time. Notified the patient's daughter that I would let discharge planning know what the family's wishes are at this time. and not be transferred out to [facility]. Initialized on 05/06/22 21:32 - END OF NOTE 05/06/22 20:00 (created 05/06/22 21:30) Nursing Note by Jana Avendaño called from [facility] and stated that the patient has a bed assignment at [facility] in [place]. Room 2524 and the number to call report is [phone]. Patient stated that she was feeling better and that she did not think that she wanted to transfer at this time. She stated that she wanted to speak with her daughter who is on her way here. Let the patient know that we could wait and speak with her daughter together when she gets here. Initialized on 05/06/22 21:30 - END OF NOTE 05/06/22 12:30 (created 05/06/22 12:37) Nursing Note by Angie Kapadia dr updated by phone of pt's afib and rate and vitals. new orders for ca rdizem drip and lovenox. Initialized on 05/06/22 12:37 - END OF NOTE 05/06/22 10:41 Nursing Note by Angie Kapadia o2 sats 84%-placed on 15L oxymizer and sats up to 100% Initialized on 05/06/22 10:41 - END OF NOTE Patient is 76-year-old female with significant past medical history of COPD hypertension chronic kidney disease hypothyroidism congenital heart disease was admitted at [facility] few weeks ago with septic knee arthritis was initially given IV antibiotic and then was sent home with Zyvox orally. Patient was still being very weak lethargic and have a shortness of breath so patient was brought into the [facility] emergency room from rehab facility. During ER evaluation patient was in acute respiratory failure secondary to COPD exacerbation. Patient chest x-ray and proBNP were within normal range which were not indicative of congestive heart failure. Patient was treated with bronchodilator therapy. Patient also has been showing atrial fibrillation rhythm which was treated with Cardizem which converted her back in to normal sinus rhythm. In next 24 hours patient condition improved. Patient and family have decided patient does not need more heroic measures at this point of time. Patient family want her to take her to the place they are where they can stay in close with her instead of these rehab facility which is little bit far for them. At this point of time due to multiple problems patient and family have decided to go back home with hospice. We will try to make arrangements for hospice. Will discharge home with all the medicine including Zyvox for her septic arthritis of the knee with they will continue. If hospice care does not work out we will get home health for her. Nurse has talked to family and patient at length and they all agree with patient's management. Code(s): J96.90 - RESPIRATORY FAILURE, UNSP, UNSP W HYPOXIA OR HYPERCAPNIA (2) Acute exacerbation of chronic obstructive pulmonary disease (COPD) Current Visit: Yes Status: Acute Code(s): J44.1 - CHRONIC OBSTRUCTIVE PULMONARY DISEASE W (ACUTE) EXACERBATION Hospital Summary - Hospital Course Hospital Course: Chief Complaint Diagnosis severe shortness of breath for few weeks. Allergies Allergy/AdvReac Type Severity Reaction Status Date / Time amoxicillin [From Augmentin] Allergy Verified 05/05/22 20:37 clavulanic acid Allergy Verified 05/05/22 20:37 [From Augmentin] Vital Signs (Last 24 hours) Temp Pulse Resp BP BP Pulse Ox 05/07/22 07:33 84 18 95 05/07/22 07:29 98.2 F 05/07/22 07:17 76 94 L 05/07/22 04:00 76 05/07/22 03:00 97.5 F 77 18 85/49 98 05/07/22 00:01 70 05/06/22 23:00 73 18 66/32 05/06/22 22:45 73 18 67/40 05/06/22 22:41 77 20 91/45 99 05/06/22 22:40 79 26 H 69/40 100 05/06/22 22:00 105 H 22 120/80 05/06/22 21:00 114 H 26 H 127/85 05/06/22 20:00 97.7 F 108 H 24 121/66 136/77 96 05/06/22 19:50 102 H 30 H 95 05/06/22 18:54 94 H 136/77 05/06/22 18:00 92 H 05/06/22 17:00 96 H 155/75 05/06/22 16:00 90 22 126/74 96 05/06/22 15:59 92 H 22 126/74 05/06/22 15:01 94 H 26 H 135/50 05/06/22 14:23 98 H 24 133/81 05/06/22 13:47 97 05/06/22 13:03 107 H 24 108/53 05/06/22 12:00 123 H 22 110/70 100 05/06/22 11:27 126 H 110/55 05/06/22 10:14 115 H 20 91 L 05/06/22 10:00 116 H 18 129/96 100 Home Medications Medication Instructions Recorded Confirmed Last Taken Type Albuterol Sulfate [Albuterol 2 puffs IH Q6HPRN PRN 05/05/22 05/06/22 05/06/22 History Sulfate Hfa] Alendronate Sodium 70 mg PO WEEKLY 05/05/22 05/06/22 04/30/22 History Allopurinol 300 mg [Zyloprim 300 mg PO DAILY 05/05/22 05/06/22 05/04/22 History 300 mg] Aspirin 81 mg PO DAILY 05/05/22 05/06/22 05/04/22 History Atorvastatin Calcium 20 mg PO HS 05/05/22 05/06/22 05/04/22 History Celecoxib 100 mg [celeBREX 100 200 mg PO DAILY 05/05/22 05/06/22 05/04/22 History MG] Cholecalciferol (Vitamin D3) 50 mcg PO DAILY 05/05/22 05/06/22 05/04/22 History [Vitamin D3] Dicyclomine HCl 20 mg PO UD 05/05/22 05/06/22 05/04/22 History Fluticasone/Umeclidin/Vilanter 1 puff IH DAILY 05/05/22 05/06/22 05/06/22 His tory [Trelegy Ellipta 100-62.5-25] Furosemide 20 mg [Lasix 20 20 mg PO BID 05/05/22 05/06/22 05/04/22 History mg] Gabapentin 600 mg PO BID 05/05/22 05/06/22 05/04/22 History Ipratropium/Albuterol Sulfate 3 ml IH Q6H PRN PRN 05/05/22 05/06/22 05/05/22 History [Iprat-Albut 0.5-3(2.5) mg/3 ml] Levothyroxine Sodium [Synthroid] 125 mcg PO DAILY 05/05/22 05/06/22 05/04/22 History Lisinopril 10 mg [Zestril 10 10 mg PO DAILY 05/05/22 05/06/22 05/04/22 History MG] Metoprolol Tartrate 25 mg PO BID 05/05/22 05/06/22 05/04/22 History Prednisone 5 mg [Deltasone 5 5 mg PO DAILY 05/05/22 05/06/22 05/04/22 History mg] Roflumilast 500 mcg PO DAILY 05/05/22 05/06/22 05/04/22 History Tizanidine HCl 4 mg [Zanaflex 4 4 mg PO Q8H 05/05/22 05/06/22 05/04/22 History MG] Linezolid [Zyvox] 600 mg PO BID 05/06/22 05/06/22 05/04/22 History Magnesium Hydroxide 30 ml [Milk 30 ml PO DAILY PRN PRN 05/06/22 05/06/22 Unknown History of Magnesia 30 ml] Montelukast Sodium 10 mg 10 mg PO QPM 05/06/22 05/06/22 05/03/22 History [Singulair 10 MG] Vitamin E 400 Units [Vitamin E 400 unit PO DAILY 05/06/22 05/06/22 05/04/22 History 400 UNIT SOFTGEL] Zinc Sulfate 220 mg PO DAILY 05/06/22 05/06/22 05/04/22 History Current Medications Generic Name Dose Route Start Last Admin Trade Name Freq PRN Reason Stop Dose Admin Albuterol Sulfate 2 puff 05/06/22 10:49 Albuterol Common Canister Inhaler IH 06/05/22 10:48 Q6HPRN PRN SHORTNESS OF BREATH/WHEEZING Albuterol/Ipratropium 3 ml 05/06/22 10:15 05/06/22 09:55 Ipratropium/Albuterol Sulfate 3 Ml Ampul.Neb IH 06/05/22 10:14 3 ml Q4HPRN PRN Administration SHORTNESS OF BREATH/WHEEZING Alendronate Sodium 70 mg 05/07/22 06:00 Alendronate Sodium 70 Mg Tablet PO 06/06/22 05:59 WEEKLY CHRISTY Allopurinol 300 mg 05/06/22 12:00 05/07/22 09:11 Allopurinol 300 Mg Tablet PO 06/05/22 11:59 300 mg DAILY CHRISTY Administration Aspirin 81 mg 05/06/22 12:00 05/07/22 09:11 Aspirin 81 Mg Tablet.Ec PO 06/05/22 11:59 81 mg DAILY CHRISTY Administration Celecoxib 200 mg 05/06/22 12:00 05/07/22 09:11 Celecoxib 100 Mg Capsule PO 06/05/22 11:59 200 mg DAILY CHRISTY Administration Cholecalciferol 2,000 unit 05/06/22 12:00 05/07/22 09:08 Cholecalciferol (Vitamin D3) 1000 Unit Tablet PO 06/05/22 11:59 Not Given DAILY CHRISTY Methylprednisolone Sodium 0 mg 05/06/22 12:00 05/07/22 06:05 Succinate 60 mg/ Sterile Water IV 06/05/22 11:59 60 mg 2 ml Q6HT CHRISTY Administration Dicyclomine HCl 20 mg 05/06/22 11:30 05/07/22 07:19 Dicyclomine Hcl 20 Mg Tablet PO 06/05/22 11:29 Not Given AC CHRISTY Enoxaparin Sodium 40 mg 05/06/22 13:00 05/07/22 09:08 Enoxaparin Sodium 40 Mg/0.4 Ml Syringe SQ 06/05/22 12:59 Not Given DAILY CHRISTY Fluticasone Propionate 0 gm 05/07/22 10:00 05/07/22 09:11 Fluticasone Propionate 16 Gm Bottle Nasal Vance NS 06/06/22 09:59 1 gm DAILY CHRISTY Administration Furosemide 20 mg 05/06/22 17:00 05/07/22 09:08 Furosemide 20 Mg Tablet PO 06/05/22 16:59 Not Given BID DIURETIC CHRISTY Gabapentin 600 mg 05/06/22 12:00 05/07/22 09:11 Gabapentin 300 Mg Capsule PO 06/05/22 11:59 600 mg BID CHRISTY Administration Norepinephrine/Dextrose 8 mg in 250 mls @ 15 mls/hr 05/05/22 23:27 05/06/22 10:00 Norepinephrine 8 Mg/250 Ml-D5w IV 06/04/22 23:26 0 mcg/min .[id number] PRN 0 mls/hr HYPOTENSION Titration Protocol 8 MCG/MIN Diltiazem HCl 100 mls @ 5 mls/hr 05/06/22 12:22 05/06/22 23:00 Cardizem Drip 100 Mg/100 Ml D5w IV 06/05/22 12:21 Infused .Q20H PRN Titration HEART RATE/ A-FIB Protocol 5 MG/HR Sodium Chloride 1,000 mls @ 50 mls/hr 05/06/22 14:45 05/07/22 06:06 Sodium Chloride 0.9% 1000 Ml IV 06/05/22 14:44 50 mls/hr .Q20H CHRISTY Administration Insulin Human Lispro 0 unit 05/06/22 09:24 Insulin Lispro 1 Unit SQ 06/05/22 09:23 UD PRN HYPERGLYCEMIA Levothyroxine Sodium 125 mcg 05/06/22 12:00 05/07/22 09:11 Levothyroxine Sodium 125 Mcg Tablet PO 06/05/22 11:59 125 mcg DAILY CHRISTY Administration Linezolid 600 mg 05/06/22 22:00 05/07/22 09:20 Linezolid 600 Mg Tablet PO 06/05/22 21:59 600 mg BID CHRISTY Administration Lisinopril 10 mg 05/06/22 12:00 05/07/22 09:07 Lisinopril 10 Mg Tablet PO 06/05/22 11:59 Not Given DAILY CHRISTY Lorazepam 1 mg 05/07/22 01:07 Lorazepam 2 Mg/1 Ml 2 Mg Vial IV 06/06/22 01:05 Q4H PRN PRN ANXIETY Magnesium Hydroxide 30 ml 05/06/22 10:49 Magnesium Hydroxide 30 Ml Udcup PO 06/05/22 10:48 DAILY PRN PRN CONSTIPATION Metoprolol Tartrate 25 mg 05/06/22 12:00 05/07/22 09:08 Metoprolol Tartrate 25 Mg Tab PO 06/05/22 11:59 Not Given BID CHRISTY Miscellaneous Information 1 each 05/06/22 11:15 Medication Intervention 1 Each Each 06/05/22 11:14 .RN TO CHECK CHRISTY Montelukast Sodium 10 mg 05/06/22 22:00 05/06/22 21:15 Montelukast Sodium 10 Mg Tablet PO 06/05/22 21:59 10 mg QPM CHRISTY Administration Pantoprazole Sodium 40 mg 05/06/22 10:00 05/07/22 09:11 Pantoprazole 40 Mg Vial IV 06/05/22 09:59 40 mg Q24H10 CHRISTY Administration Roflumilast 500 mcg 05/06/22 12:00 05/07/22 09:14 Roflumilast 500 Mcg Tablet PO 06/05/22 11:59 500 mcg DAILY CHRISTY Administration Fluticasone/Salmeterol 2 puff 05/06/22 19:00 05/07/22 07:12 Fluticasone/Salmeterol 115/21 - 120 Puff Common Canister IH 06/05/22 18:59 Not Given BIDRT CHRISTY Simvastatin 20 mg 05/06/22 22:00 05/06/22 21:15 Simvastatin 20 Mg Tablet PO 06/05/22 21:59 20 mg HS CHRISTY Administration Sodium Chloride 1 ml 05/07/22 07:15 Sodium Chloride Nasal Vance 45 Ml Bottle NS 06/05/22 21:08 Q6HPRN PRN Dry Nose Tizanidine HCl 4 mg 05/06/22 14:00 05/07/22 06:06 Tizanidine Hcl 4 Mg Tablet PO 06/05/22 13:59 4 mg Q8HT CHRISTY Administration Vitamin E 400 u 05/06/22 12:00 05/07/22 09:07 Vitamin E 400 Iu Softgel PO 06/05/22 11:59 Not Given DAILY CHRISTY Zinc Gluconate 50 mg 05/06/22 12:00 05/07/22 09:07 Zinc Gluconate 50 Mg Tablet PO 06/05/22 11:59 Not Given DAILY CHRISTY Discontinued Medications Generic Name Dose Route Start Last Admin Trade Name Freq PRN Reason Stop Dose Admin Albuterol/Ipratropium 3 ml 05/06/22 13:00 Ipratropium/Albuterol Sulfate 3 Ml Ampul.Neb IH 06/05/22 12:59 Q6HRT CHRISTY Albuterol/Ipratropium Confirm 05/06/22 09:57 Ipratropium/Albuterol Sulfate 3 Ml Ampul.Neb Administered 05/06/22 09:58 Dose 3 ml IH .STK-MED ONE Albuterol/Ipratropium 3 ml 05/06/22 10:49 Ipratropium/Albuterol Sulfate 3 Ml Ampul.Neb IH 06/05/22 10:48 Q6H PRN PRN SHORTNESS OF BREATH/WHEEZING Aspirin 81 mg 05/07/22 10:00 Aspirin 81 Mg Tab.Chew PO 06/06/22 09:59 DAILY CHRISTY Fluticasone Propionate Confirm 05/06/22 17:17 Fluticasone Propionate 16 Gm Bottle Nasal Vance Administered 05/06/22 17:18 Dose 16 gm NS .STK-MED ONE Furosemide 40 mg 05/05/22 20:55 05/05/22 21:09 Furosemide 40 Mg/4 Ml Vial IV 05/05/22 20:56 40 mg STAT ONE Administration Furosemide Confirm 05/05/22 21:08 Furosemide 40 Mg/4 Ml Vial Administered 05/05/22 21:09 Dose 40 mg .ROUTE .STK-MED ONE Sodium Chloride 1,000 mls @ 999 mls/hr 05/05/22 20:42 05/05/22 22:21 Sodium Chloride 0.9% 1000 Ml IV 05/05/22 21:42 Infused .Q1H1M STA Infusion Sodium Chloride Confirm 05/05/22 20:46 Sodium Chloride 0.9% 1000 Ml Administered 05/05/22 20:47 Dose 1,000 mls @ ud .ROUTE .STK-MED ONE Sodium Chloride 1,000 mls @ 999 mls/hr 05/05/22 22:01 05/05/22 23:26 Sodium Chloride 0.9% 1000 Ml IV 05/05/22 23:01 Infused .Q1H1M STA Infusion Sodium Chloride Confirm 05/05/22 22:02 Sodium Chloride 0.9% 1000 Ml Administered 05/05/22 22:03 Dose 1,000 mls @ ud .ROUTE .STK-MED ONE Ceftriaxone Sodium/Dextrose 1 g in 50 mls @ 100 mls/hr 05/05/22 22:19 05/05/22 23:25 Rocephin 1 Gm-D5w 50 Ml Bag IV 05/05/22 22:48 Infused STAT STA Infusion Ceftriaxone Sodium/Dextrose Confirm 05/05/22 22:25 Rocephin 1 Gm-D5w 50 Ml Bag Administered 05/05/22 22:26 Dose 1 g in 50 mls @ ud IV .STK-MED ONE Sodium Chloride 1,000 mls @ 999 mls/hr 05/05/22 23:26 05/06/22 07:06 Sodium Chloride 0.9% 1000 Ml IV 05/06/22 00:26 Infused .Q1H1M STA Infusion Sodium Chloride Confirm 05/05/22 23:30 Sodium Chloride 0.9% 1000 Ml Administered 05/05/22 23:31 Dose 1,000 mls @ ud .ROUTE .STK-MED ONE Azithromycin 500 mg in 250 mls @ 250 mls/hr 05/06/22 00:40 05/06/22 02:10 Zithromax 500 Mg/ 250 Ml Nacl Premix IV 05/06/22 01:39 Infused STAT STA Infusion Azithromycin Confirm 05/06/22 00:57 Zithromax 500 Mg/ 250 Ml Nacl Premix Administered 05/06/22 00:58 Dose 500 mg in 250 mls @ ud IV .STK-MED ONE Sodium Chloride 1,000 mls @ 100 mls/hr 05/06/22 06:15 05/06/22 06:19 Sodium Chloride 0.9% 1000 Ml IV 06/05/22 06:14 100 mls/hr .Q10H CHRISTY Administration Ceftriaxone Sodium/Dextrose 2 g in 50 mls @ 100 mls/hr 05/06/22 09:24 05/06/22 09:58 Rocephin 2 Gm-D5w 50ml Bag IV 05/06/22 09:53 Not Given STAT STA Azithromycin 500 mg in 250 mls @ 250 mls/hr 05/06/22 09:24 05/06/22 09:58 Zithromax 500 Mg/ 250 Ml Nacl Premix IV 05/06/22 10:23 Not Given STAT STA Lorazepam 1 mg 05/06/22 18:59 Lorazepam 2 Mg/1 Ml 2 Mg Vial IV 06/05/22 18:58 Q6H PRN PRN ANXIETY Methylprednisolone Sodium Succinate Confirm 05/06/22 17:21 Methylprednis Sod Succ 125 Mg/2 Ml Vial Administered 05/06/22 17:22 Dose 125 mg .ROUTE .STK-MED ONE Sodium Chloride 1 ml 05/06/22 21:09 05/06/22 21:15 Sodium Chloride Nasal Vance 45 Ml Bottle NS 06/05/22 21:08 1 ml Q6H PRN Administration Dry Nose Intake & Output (Last 24 hours) 05/04/22 05/05/22 05/06/22 05/07/22 11:59 11:59 11:59 11:59 Intake Total 635 Output Total 2050 Balance -1415 Weight 91.5 kg 91.5 kg Microbiology Results (Last 24 hours) 05/05/22 22:30 Blood Blood Culture Gram Stain - Pending 05/05/22 22:30 Blood Blood Culture - Preliminary NO GROWTH TO DATE 05/05/22 20:30 Blood Blood Culture Gram Stain - Pending 05/05/22 20:30 Blood Blood Culture - Preliminary NO GROWTH TO DATE Laboratory Results (Last 24 hours) 05/07/22 05/07/22 05/06/22 05:20 05:20 12:34 WBC 6.3 RBC 2.94 L Hgb 8.0 L Hct 28.5 L MCV 96.9 MCH 27.2 MCHC 28.1 L RDW 17.8 H Plt Count 190 MPV 9.6 Gran % 92.8 H Immature Gran % (Auto) 0.8 H Nucleat RBC Rel Count 0.6 H Eos # (Auto) 0 Immature Gran # (Auto) 0.05 H Absolute Lymphs (auto) 0.27 L Absolute Monos (auto) 0.13 Absolute Nucleated RBC 0.04 H Lymphocytes % 4.3 L Monocytes % 2.1 Eosinophils % 0.0 Basophils % 0.0 Absolute Granulocytes 5.84 Basophils # 0 Sodium 132 L Potassium 5.0 Chloride 94 L Carbon Dioxide 36 H Anion Gap 8.0 BUN 18 H Creatinine 0.83 Estimated GFR > 60.0 Glucose 179 H Calcium 7.6 L Magnesium 1.6 Total Bilirubin 0.30 AST 25 ALT 24 Alkaline Phosphatase 71 NT-Pro-B Natriuret Pep Serum Total Protein 5.9 L Albumin 3.4 L Slides for Path Review YES 05/06/22 08:40 WBC RBC Hgb Hct MCV MCH MCHC RDW Plt Count MPV Gran % Immature Gran % (Auto) Nucleat RBC Rel Count Eos # (Auto) Immature Gran # (Auto) Absolute Lymphs (auto) Absolute Monos (auto) Absolute Nucleated RBC Lymphocytes % Monocytes % Eosinophils % Basophils % Absolute Granulocytes Basophils # Sodium 128 L Potassium 4.9 Chloride 89 L D Carbon Dioxide 34 H Anion Gap 10.1 BUN 18 H Creatinine 0.91 Estimated GFR > 60.0 Glucose 171 H Calcium 8.2 L Magnesium Total Bilirubin AST ALT Alkaline Phosphatase NT-Pro-B Natriuret Pep 1800 Serum Total Protein Albumin Slides for Path Review Orders (Last 24 hours) Category Date Time Status Bedrest ROUTINE Activity 05/06/22 09:24 Active Up With Assistance ROUTINE Activity 05/06/22 09:24 Active Admit as Inpatient ROUTINE Care 05/06/22 09:24 Active Call Admit Doctor for Orders ON ADMISSION Care 05/06/22 09:24 Active Fall Protocol Q1H Care 05/06/22 09:24 Active IV Care Q6H Care 05/06/22 09:24 Active Neuro Checks Q4H Care 05/06/22 09:24 Active Stan Carballo ROUTINE Care 05/06/22 09:24 Active Telemetry q6h Care 05/06/22 09:18 Completed Weight,Daily 0600 Care 05/06/22 09:24 Active Consistent Carbohydrate Diet 1800 Calorie Diet 05/06/22 Lunch Active CBC W DIFF AM.LAB Lab 05/07/22 05:20 Completed CMP AM.LAB Lab 05/07/22 05:20 Completed MAGNESIUM Routine Lab 05/06/22 12:34 Completed Albuterol Common Canister [Ventolin Common Canister* Med 05/06/22 10:49 Active ] 2 puff IH Q6HPRN PRN Albuterol/Ipratropium 3ml Neb* [DUONEB 0.5-3 MG/3 ml Med 05/06/22 09:57 Discontinued Neb] 3 ml IH .STK-MED ONE Albuterol/Ipratropium 3ml Neb* [DUONEB 0.5-3 MG/3 ml Med 05/06/22 10:15 Active Neb] 3 ml IH Q4HPRN PRN Albuterol/Ipratropium 3ml Neb* [DUONEB 0.5-3 MG/3 ml Med 05/06/22 10:49 Discontinued Neb] 3 ml IH Q6H PRN PRN Albuterol/Ipratropium 3ml Neb* [DUONEB 0.5-3 MG/3 ml Med 05/06/22 13:00 Discontinued Neb] 3 ml IH Q6HRT Alendronate Sodium 70 mg [Fosamax 70 MG] Med 05/07/22 06:00 Active 70 mg PO WEEKLY Allopurinol 300 mg [Zyloprim 300 mg] Med 05/06/22 12:00 Active 300 mg PO DAILY Aspirin 81 gm Chew [Baby Aspirin 81 mg Chew] Med 05/07/22 10:00 Discontinued 81 mg PO DAILY Aspirin EC 81 mg [Ecotrin 81 mg] Med 05/06/22 12:00 Active 81 mg PO DAILY Azithromycin 500 mg/250 ml [Zithromax 500 MG/ 250 ML Med 05/06/22 09:24 Discontinued NaCl Premix] 500 mg in 250 ml IV STAT Ceftriaxone 2 GM/50 ML PREMIX* [ROCEPHIN 2 Gm-D5w 50ML Med 05/06/22 09:24 Discontinued BAG] 2 g in 50 ml IV STAT Celecoxib 100 mg [celeBREX 100 MG] Med 05/06/22 12:00 Active 200 mg PO DAILY Cholecalciferol (Vitamin D3) [Vitamin D] Med 05/06/22 12:00 Active 2,000 unit PO DAILY Dicyclomine HCl 20 mg [Bentyl 20 mg] Med 05/06/22 11:30 Active 20 mg PO AC Diltiazem HCl 100 mg/100 ml [Cardizem Drip 100 mg/100 Med 05/06/22 12:22 Hold ml D5w] 100 ml IV 5 mg/hr Enoxaparin Sodium [Enoxaparin Sodium] Med 05/06/22 13:00 Active 40 mg SQ DAILY Fluticasone Propionate [Flonase NASAL] Med 05/06/22 17:17 Discontinued 16 gm NS .STK-MED ONE Fluticasone Propionate [Flonase NASAL] Med 05/07/22 10:00 Active See Dose Instructions NS DAILY Fluticasone/Salmeterol 115/21 [Advair Hfa 115/21 Common Med 05/06/22 19:00 Active canister*] 2 puff IH BIDRT Furosemide 20 mg [Lasix 20 mg] Med 05/06/22 17:00 Active 20 mg PO BID DIURETIC Gabapentin [Neurontin ] Med 05/06/22 12:00 Active 600 mg PO BID Insulin Lispro [Humalog] Med 05/06/22 09:24 Active See Dose Instructions SQ UD PRN Levothyroxine Sodium 125 Mcg [Synthroid 125 Mcg] Med 05/06/22 12:00 Active 125 mcg PO DAILY Linezolid [Zyvox] Med 05/06/22 22:00 Active 600 mg PO BID Lisinopril 10 mg [Zestril 10 MG] Med 05/06/22 12:00 Active 10 mg PO DAILY Lorazepam 2 mg/1 ml [Ativan 2 MG/1 ML VIAL] Med 05/07/22 01:07 Active 1 mg IV Q4H PRN PRN Lorazepam 2 mg/1 ml [Ativan 2 MG/1 ML VIAL] Med 05/06/22 18:59 Disconti nued 1 mg IV Q6H PRN PRN Magnesium Hydroxide 30 ml [Milk of Magnesia 30 ml Med 05/06/22 10:49 Active ] 30 ml PO DAILY PRN PRN Medication Intervention Med 05/06/22 11:15 Active 1 each MC .RN TO CHECK Methylprednis Sod Succ 125 mg* [solu-MEDROL] Med 05/06/22 17:21 Discontinued 125 mg .ROUTE .STK-MED ONE Methylprednis Sod Succ 125 mg* [solu-MEDROL] 60 mg Med 05/06/22 12:00 Active Water For Injection,Sterile [Sterile H2O 10 ml] 2 ml IV Q6HT Metoprolol Tartrate 25 mg [Lopressor 25MG Tab] Med 05/06/22 12:00 Active 25 mg PO BID Montelukast Sodium 10 mg [Singulair 10 MG] Med 05/06/22 22:00 Active 10 mg PO QPM NaCl 0.9% 1000 ml [Sodium Chloride 0.9% 1000 ML] 1,000 Med 05/06/22 14:45 Active ml IV 50 mls/hr Pantoprazole 40 mg [Protonix 40 mg IV] Med 05/06/22 10:00 Active 40 mg IV Q24H10 Roflumilast [Daliresp] Med 05/06/22 12:00 Active 500 mcg PO DAILY Simvastatin 20Mg [Zocor 20Mg] Med 05/06/22 22:00 Active 20 mg PO HS Sodium Chloride Nasal Vance [OCEAN Nasal Vance] Med 05/06/22 21:09 Discontinued 1 ml NS Q6H PRN Sodium Chloride Nasal Vance [OCEAN Nasal Vance] Med 05/07/22 07:15 Active 1 ml NS Q6HPRN PRN Tizanidine HCl 4 mg [Zanaflex 4 MG] Med 05/06/22 14:00 Active 4 mg PO Q8HT Vitamin E 400 Units [Vitamin E 400 UNIT SOFTGEL] Med 05/06/22 12:00 Active 400 u PO DAILY Zinc Gluconate 50 mg [Zinc Gluconate 50 MG] Med 05/06/22 12:00 Active 50 mg PO DAILY PT Eval & Treat (MD Order) ONCE PT 05/08/22 08:00 Active BiPap/CPAP ROUTINE RT 05/06/22 10:17 Completed Oxygen NASAL CANNULA 5 lpm RT 05/06/22 10:14 Active Pulse Oximetry .continuos RT 05/06/22 10:14 Active Respiratory Therapy Assessment DAILY RT 05/06/22 10:14 Active Patient Care Notes (Last 24 hours) 05/07/22 08:53 Nursing Note by Angie Kapadia DR ROUNDING ON PT. PT IN AGREEMENT WITH PLAN TO DC HOME TODAY WITH HOSPICE/PALLIATIVE CARE. Initialized on 05/07/22 08:53 - END OF NOTE 05/07/22 01:10 Nursing Note by Jana Avendaño Notified RT Rajinder of update on the patient's care. Notified her that the patient's family wishes to pursue palliative care at this time. She verbalized understanding. Initialized on 05/07/22 01:10 - END OF NOTE 05/07/22 01:00 (created 05/07/22 01:07) Nursing Note by Jana Avendaño Called and spoke with Dr Tabares at this time. Notified him that the patient's family wish to pursue palliative care at this time. Received orders to d/c telemetry at this time and increase Ativan from every 6 hours to every 4 hours as needed. No other orders at this time. Initialized on 05/07/22 01:07 - END OF NOTE 05/07/22 00:52 Nursing Note by Jana Avendaño Patient's daughter and arrived at the hospital. Updated them on the patient's current condition. The and daughter both agreed at this time, to turn to palliative measures and keep the patient comfortable. They do not want to do aggressive medication management. The stated that he wants to make sure that he follows the patient's wishes at this time.Will call and notify the Dr long wall shear operator ( Dr Tabares) about the family's decision. Initialized on 05/07/22 00:52 - END OF NOTE 05/06/22 23:56 Nursing Note by Jana Avendaño Patient's blood pressure continues to decrease, patient is no longer responding at this time. Reading 40's/20[address] web content coordinator (Dr Tabares) at this time. Updated Dr on patient's condition. Discussed patients code status at this time. He stated to contact the patient's family and notify them of the patient's condition. Asked if he would like to start her back on the levophed drip. Responded not at this time. Contacted the patient's family and spoke with Myrtle the patient's daughter and the patient's . Notified them that the patient's blood pressures have lowered and that she is lethargic and unable to arouse. She stated that they would come back to the hospital. Initialized on 05/06/22 23:56 - END OF NOTE 05/06/22 23:19 Nursing Note by Jana Avendaño Went to do hourly check on patient, upon taking patient's blood pressure in her right arm her pressure was 69/40. Rechecked on left arm reading was 91/45. Noted that the patient's heart rate was in the 70's at this time and that there are noted P waves on the monitor. Rhythm also regular with noted PAC's. Asked the patient how she felt. She stated that she was just tired and wished to sleep. She denies shortness of breath, dizziness, chest pain. Patient was able to answer all questions correctly and was able to follow commands at this time. Retrieved a manual blood pressure cuff and rechecked. Reading was 67/40. Paused the cardizem gtt at this time and contacted long wall shear operator ( Dr Goins). Notified him of the patient's pressure he stated to stop the cardizem gtt at this time. Notified him that the patient is in sinus rhythm at this time. Notified him that the patient is asymptomatic and that she is talking and alert and oriented. Notified him that the patient received metoprolol at bedtime. Her again verbalized understanding and stated to watch the patient for now and turn off the gtt. Asked if there was any other medication at this time he would like to give the patient and he stated not at this time. Initialized on 05/06/22 23:19 - END OF NOTE 05/06/22 21:29 (created 05/06/22 21:35) Nursing Note by Jana Avendaño Contacted [facility] and spoke with Luz. Notified her that at this time the patient and the patient's family do not want to pursue transferring to [place]. She stated that she would make a note and notify [facility] that they can close the case. Initialized on 05/06/22 21:35 - END OF NOTE 05/06/22 21:00 (created 05/06/22 21:32) Nursing Note by Jana Avendaño Patient's daughter arrived. Spoke with patient and daughter and stated they would like for her to just stay here at this time. Patient is able to be managed. Daughter stated that she would like to look into a different rehab facility that is closer to [place], [place]. This is where the patient and her lives at this time. Patient's daughter Myrtle stated that he father is having a hard time taking care of her at home because she keeps falling. She states that she wouldn't mind looking into usp vs hospice at this time. Notified the patient's daughter that I would let discharge planning know what the family's wishes are at this time. and not be transferred out to [facility]. Initialized on 05/06/22 21:32 - END OF NOTE 05/06/22 20:00 (created 05/06/22 21:30) Nursing Note by Jana Avendaño called from [facility] [place] and stated that the patient has a bed assignment at [facility] in [place]. Room 2524 and the number to call report is [phone]. Patient stated that she was feeling better and that she did not think that she wanted to transfer at this time. She stated that she wanted to speak with her daughter who is on her way here. Let the patient know that we could wait and speak with her daughter together when she gets here. Initialized on 05/06/22 21:30 - END OF NOTE 05/06/22 12:30 (created 05/06/22 12:37) Nursing Note by Angie Kapadia dr updated by phone of pt's afib and rate and vitals. new orders for cardizem drip and lvoenox. Initialized on 05/06/22 12:37 - END OF NOTE 05/06/22 10:41 Nursing Note by Angie Kapadia o2 sats 84%-placed on 15L oxymizer and sats up to 100% Initialized on 05/06/22 10:41 - END OF NOTE - Vitals & Intake/Output Vital Signs: Vital Signs Temperature 98.2 F 05/07/22 07:29 Pulse Rate 84 05/07/22 07:33 Respiratory Rate 18 05/07/22 07:33 Blood Pressure 85/49 05/07/22 03:00 O2 Sat by Pulse Oximetry 95 05/07/22 07:33 Intake & Output: Intake & Output 05/04/22 05/05/22 05/06/22 05/07/22 11:59 11:59 11:59 11:59 Intake Total 635 Output Total 2050 Balance -1415 Weight 91.5 kg 91.5 kg - Lab Result Diagrams: 05/07/22 05:20 05/07/22 05:20 Lab Results-Last 24 Hrs: Lab Results-Last 24 Hours 05/06/22 05/06/22 05/07/22 Range/Units 08:40 12:34 05:20 WBC 6.3 (4.0-10.5) x10^3/uL RBC 2.94 L (4.1-5.4) x10^6/uL Hgb 8.0 L (12.0-16.0) g/dL Hct 28.5 L (35-47) % MCV 96.9 (78-100) fL MCH 27.2 (26-32) pg MCHC 28.1 L (32-36) g/dL RDW 17.8 H (11.5-14.0) % Plt Count 190 (150-450) x10^3/uL MPV 9.6 (7.5-11.0) fL Gran % 92.8 H (36.0-66.0) % Immature Gran % (Auto) 0.8 H (0.00-0.4) % Nucleat RBC Rel Count 0.6 H (0.00-0.1) % Eos # (Auto) 0 (0-0.5) x10^3/uL Immature Gran # (Auto) 0.05 H (0.00-0.03) x10^3u/L Absolute Lymphs (auto) 0.27 L (1.0-4.6) x10^3/uL Absolute Monos (auto) 0.13 (0.0-1.3) x10^3/uL Absolute Nucleated RBC 0.04 H (0.00-0.01) x10^3u/L Lymphocytes % 4.3 L (24.0-44.0) % Monocytes % 2.1 (0.0-12.0) % Eosinophils % 0.0 (0.00-5.0) % Basophils % 0.0 (0.0-0.4) % Absolute Granulocytes 5.84 (1.4-6.9) x10^3/uL Basophils # 0 (0-0.4) x10^3/uL Sodium 128 L (137-145) mmol/L Potassium 4.9 (3.5-5.1) mmol/L Chloride 89 L D (98-107) mmol/L Carbon Dioxide 34 H (22-30) mmol/L Anion Gap 10.1 (5-15) MEQ/L BUN 18 H (7-17) mg/dL Creatinine 0.91 (0.52-1.04) mg/dL Estimated GFR > 60.0 ML/MIN Glucose 171 H (74-106) mg/dL Calcium 8.2 L (8.4-10.2) mg/dL Magnesium 1.6 (1.6-2.3) mg/dL Total Bilirubin (0.2-1.3) mg/dL AST (14-36) U/L ALT (0-35) U/L Alkaline Phosphatase (38-126) U/L NT-Pro-B Natriuret Pep 1800 (0-1800) pg/mL Serum Total Protein (6.3-8.2) g/dL Albumin (3.5-5.0) g/dL Slides for Path Review YES 05/07/22 Range/Units 05:20 WBC (4.0-10.5) x10^3/uL RBC (4.1-5.4) x10^6/uL Hgb (12.0-16.0) g/dL Hct (35-47) % MCV (78-100) fL MCH (26-32) pg MCHC (32-36) g/dL RDW (11.5-14.0) % Plt Count (150-450) x10^3/uL MPV (7.5-11.0) fL Gran % (36.0-66.0) % Immature Gran % (Auto) (0.00-0.4) % Nucleat RBC Rel Count (0.00-0.1) % Eos # (Auto) (0-0.5) x10^3/uL Immature Gran # (Auto) (0.00-0.03) x10^3u/L Absolute Lymphs (auto) (1.0-4.6) x10^3/uL Absolute Monos (auto) (0.0-1.3) x10^3/uL Absolute Nucleated RBC (0.00-0.01) x10^3u/L Lymphocytes % (24.0-44.0) % Monocytes % (0.0-12.0) % Eosinophils % (0.00-5.0) % Basophils % (0.0-0.4) % Absolute Granulocytes (1.4-6.9) x10^3/uL Basophils # (0-0.4) x10^3/uL Sodium 132 L (137-145) mmol/L Potassium 5.0 (3.5-5.1) mmol/L Chloride 94 L (98-107) mmol/L Carbon Dioxide 36 H (22-30) mmol/L Anion Gap 8.0 (5-15) MEQ/L BUN 18 H (7-17) mg/dL Creatinine 0.83 (0.52-1.04) mg/dL Estimated GFR > 60.0 ML/MIN Glucose 179 H (74-106) mg/dL Calcium 7.6 L (8.4-10.2) mg/dL Magnesium (1.6-2.3) mg/dL Total Bilirubin 0.30 (0.2-1.3) mg/dL AST 25 (14-36) U/L ALT 24 (0-35) U/L Alkaline Phosphatase 71 (38-126) U/L NT-Pro-B Natriuret Pep (0-1800) pg/mL Serum Total Protein 5.9 L (6.3-8.2) g/dL Albumin 3.4 L (3.5-5.0) g/dL Slides for Path Review Micro Results-Entire Visit: Microbiology 05/05/22 22:30 Blood Culture - Preliminary Blood NO GROWTH TO DATE 05/05/22 20:30 Blood Culture - Preliminary Blood NO GROWTH TO DATE - Radiology Exams Ordered Rad Exams-Entire Visit: Radiology Procedures Category Date Time Status CHEST 1 VIEW (PORTABLE) Stat Exams 05/05/22 20:18 Completed CHEST WITH CONTRAST [CT] Stat Exams 05/05/22 22:13 Completed - Procedures and Test Procedures and Tests throughout Hospitalization: Therapy Orders & Screens 05/06/22 10:14 Oxygen NASAL CANNULA 5 lpm Comment: Diagnosis: Respiratory failure Respiratory Therapy Assessment DAILY Comment: Diagnosis: Respiratory failure 05/06/22 10:17 BiPap/CPAP ROUTINE Comment: Diagnosis: Respiratory failure 05/08/22 08:00 PT Eval & Treat ( Order) ONCE Reason for Eval:: weakness Diagnosis: Respiratory failure - Discharge Discharge Date: 05/09/22 Disposition: HOME HEALTH SERVICE Condition: Stable Prescriptions: Continue Metoprolol Tartrate 25 mg PO BID Lisinopril 10 mg [Zestril 10 MG] 10 mg PO DAILY Gabapentin 600 mg PO BID Furosemide 20 mg [Lasix 20 mg] 20 mg PO BID Dicyclomine HCl 20 mg PO UD Cholecalciferol (Vitamin D3) [Vitamin D3] 50 mcg PO DAILY Celecoxib 100 mg [celeBREX 100 MG] 200 mg PO DAILY Alendronate Sodium 70 mg PO WEEKLY Atorvastatin Calcium 20 mg PO HS Aspirin 81 mg PO DAILY Allopurinol 300 mg [Zyloprim 300 mg] 300 mg PO DAILY Ipratropium/Albuterol Sulfate [Iprat-Albut 0.5-3(2.5) mg/3 ml] 3 ml IH Q6H PRN PRN PRN Reason: Shortness Of Breath/Wheezing Albuterol Sulfate [Albuterol Sulfate Hfa] 2 puffs IH Q6HPRN PRN PRN Reason: Shortness Of Breath/Wheezing Fluticasone/Umeclidin/Vilanter [Trelegy Ellipta 100-62.5-25] 1 puff IH DAILY Tizanidine HCl 4 mg [Zanaflex 4 MG] 4 mg PO Q8H Levothyroxine Sodium [Synthroid] 125 mcg PO DAILY Roflumilast 500 mcg PO DAILY Prednisone 5 mg [Deltasone 5 mg] 5 mg PO DAILY Vitamin E 400 Units [Vitamin E 400 UNIT SOFTGEL] 400 unit PO DAILY Magnesium Hydroxide 30 ml [Milk of Magnesia 30 ml] 30 ml PO DAILY PRN PRN PRN Reason: Constipation Linezolid [Zyvox] 600 mg PO BID Montelukast Sodium 10 mg [Singulair 10 MG] 10 mg PO QPM Zinc Sulfate 220 mg PO DAILY Instructions: Heart Failure, Adult (DC), Pneumonia, Adult (DC), Sepsis, Adult (DC) Follow up with: EDUARDO CHEN DO [NON-STAFF PHY W/O PRIVILEGES] - ENVIVE,ENVIVE [LOCATION] - WAYNE TREVIÑO JR [Primary Care Provider] - ARAMIS CARRERO MD [NON-STAFF PHY W/O PRIVILEGES] - Forms: Discharge Instructions
[2022-05-07] MEDS ORDERED: ZINC SULFATE 50 MG PO SCH (10:00)
[2022-05-07] MEDS ORDERED: BABY ASPIRIN 81 MG CHEW PO SCH (10:00)
[2022-05-07] MEDS ORDERED: NON-FORMULARY ITEM (Cholecalciferol (Vitamin D3) [Vitamin D3] 50 MCG Capsule) PO SCH (10:00)
[2022-05-07] MEDS ORDERED: NON-FORMULARY ITEM (Fluticasone/Umeclidin/Vilanter [Trelegy Ellipta 100-62.5-25] 1 EACH Bl IH SCH (10:00)
[2022-05-07] MEDS ORDERED: solu-MEDROL ONE (17:24)
[2022-05-07] MEDS: ZOCOR 20MG PO SCH (21:06)
[2022-05-07] MEDS: Singulair 10 MG PO SCH (21:06)
[2022-05-08] MEDS: solu-MEDROL 60 MG, Sterile H2O 10 ml 2 ML IV SCH ×8 (05:18→23:35)
[2022-05-08] MEDS: Zanaflex 4 MG PO SCH ×3 (06:20→21:35)
[2022-05-08] MEDS: Advair Hfa 115/21 Common canister IH SCH ×2 (07:37→18:50)
[2022-05-08] MEDS: celeBREX 100 MG PO SCH (08:42)
[2022-05-08] MEDS: NEURONTIN PO SCH ×2 (08:42→21:34)
[2022-05-08] MEDS: VITAMIN D PO SCH (08:42)
[2022-05-08] MEDS: ENOXAPARIN SODIUM SQ SCH (08:42)
[2022-05-08] MEDS: ECOTRIN 81 MG PO SCH (08:43)
[2022-05-08] MEDS: BENTYL 20 MG PO SCH ×3 (08:43→16:30)
[2022-05-08] MEDS: ZYLOPRIM 300 MG PO SCH (08:43)
[2022-05-08] MEDS: LASIX 20 MG PO SCH ×2 (08:43→16:52)
[2022-05-08] MEDS: SYNTHROID 125 MCG PO SCH (08:44)
[2022-05-08] MEDS: PROTONIX 40 MG IV IV SCH (08:44)
[2022-05-08] MEDS: Flonase NASAL NS SCH (08:44)
[2022-05-08] MEDS: DALIRESP PO SCH (08:44)
[2022-05-08] MEDS: Zestril 10 MG PO SCH (08:45)
[2022-05-08] MEDS: Vitamin E 400 UNIT SOFTGEL PO SCH (08:45)
[2022-05-08] MEDS: Zinc Gluconate 50 MG PO SCH (08:45)
[2022-05-08] MEDS: Lopressor 25MG Tab PO SCH ×2 (08:46→21:34)
[2022-05-08] MEDS: ZYVOX PO SCH ×2 (11:42→21:36)
[2022-05-08] MEDS: MORPHINE SULFATE 2 MG INJ IV PRN ×4 (12:43→23:35)
--- NOTE | 2022-05-08 12:59 | PCM.NOTE ---
Date and Time: 05/08/22 1258 Subjective Assessment: doing ok - Review of Systems Constitutional: No Fever, No Chills Eyes: No Symptoms Ears, Nose, & Throat: No Symptoms Respiratory: No Cough, No Short Of Breath Cardiac: No Chest Pain, No Edema, No Syncope Abdominal/Gastrointestinal: No Abdominal Pain, No Nausea, No Vomiting, No Diarrhea Genitourinary Symptoms: No Dysuria Musculoskeletal: No Back Pain, No Neck Pain Skin: No Rash Neurological: No Dizziness, No Focal Weakness, No Sensory Changes Psychological: No Symptoms Endocrine: No Symptoms Hematologic/Lymphatic: No Symptoms Immunological/Allergic: No Symptoms Objective Exam General Appearance: no apparent distress, alert Neurologic Exam: alert, oriented x 3, cooperative, normal mood/affect, nml cerebellar function, sensation nml, No motor deficits Skin Exam: normal color, warm, dry Wound Assessment: Skin/Wound Assessment Wound/Incision Assessment Start: 05/06/22 09:53 Text: Status: Active Freq: Q6H Protocol: Document 05/08/22 08:00 (Rec: 05/08/22 09:44 [id number]) Wound/Incision Assessment Right Knee Wound Assessment Shift Assessment Wound Type see comment Comment mepilex in place Eye Exam: PERRL, EOMI, eyes nml inspection Ears, Nose, Throat Exam: normal ENT inspection, pharynx normal, moist mucous membranes Neck Exam: normal inspection, non-tender, supple, full range of motion Respiratory Exam: normal breath sounds, lungs clear, No respiratory distress Cardiovascular Exam: regular rate/rhythm, normal heart sounds Gastrointestinal/Abdomen Exam: soft, No tenderness, No mass Extremity Exam: normal inspection, normal range of motion Back Exam: normal inspection, normal range of motion, No CVA tenderness, No ve rtebral tenderness Pelvic Exam: deferred Rectal Exam: deferred OBJECTIVE DATA Vital Signs: Vital Signs - 24 hr Temp Pulse Resp BP Pulse Ox 05/08/22 12:00 96.4 F 100 H 16 99/58 97 05/08/22 07:41 102 H 20 96 05/08/22 07:08 97.7 F 115 H 18 108/52 94 L 05/08/22 03:46 97.1 F 116 H 21 113/59 92 L 05/07/22 23:46 96.9 F 84 17 53/28 99 05/07/22 19:43 124 H 20 95 05/07/22 19:38 97.5 F 127 H 20 107/51 92 L 05/07/22 16:00 98.4 F 112 H 18 100/53 97 Pain Assessment - Last Documented Pain Intensity 8 Pain Scale Used 0-10 Pain Scale Intake and Output: Intake & Output 05/06/22 05/07/22 05/08/22 05/09/22 11:59 11:59 11:59 11:59 Intake Total 635 340 Output Total 2050 900 Balance -1415 -560 Weight 91.5 kg 91.5 kg Multi-Disciplinary Progress Notes: Multi-Disciplinary Progress Notes 05/08/22 12:27 Case Management Note by Radha Stallings HAD LONG DISCUSSION WITH DAUGHTER ANTHONY AND - WE DISCUSSED HOSPICE CARE VS REHAB. AFTER MUCH CONSIDERATION AND S/W DR CEE THEY HAVE DECIDED TO TAKE PATIENT HOME WITH HOSPICE. DAUGHTER WILL STAY IN TOWN AND HELP CARE FOR HER WITH PATIENT'S . THEY HAVE [facility]OSEN [facility]. REFERRAL AND ORDER SENT. S/W [facility]- THEY WILL CONTACT DAUGHTER AND REQUEST EQUIPMENT DELIVERY AND LET US KNOW WHEN TO ARRANGE TRANSPORT ( LIKELY TOMORROW). I S/W PATIENT- SHE ALSO WISHES TO RETURN HOME AND BE KEPT COMFORTABLE. WHEN THIS NURSE ASKED IF SHE WANTED TO GO HOME AND LET NATURE TAKE ITS COURSE SHE RESPONDED - "ITS BETTER THAN THIS". PATIENT UNDERSTANDS HER BODY IS SHUTTING DOWN AND WANTS TO BE HOME AND KEPT COMFORTABLE Initialized on 05/08/22 12:27 - END OF NOTE Assessment/Plan (1) Respiratory failure Current Visit: Yes Status: Acute Qualifiers: Chronicity: acute on chronic Respiratory failure complication: hypoxia and hypercapnia Qualified Code(s): J96.21 - Acute and chronic respiratory failure with hypoxia; J96.22 - Acute and chronic respiratory failure with hypercapnia; J96.22 - Acute and chronic respiratory failure with hypercapnia Assessment & Plan: Chief Complaint Diagnosis severe shortness of breath for few weeks. Allergies Allergy/AdvReac Type Severity Reaction Status Date / Time amoxicillin [From Augmentin] Allergy Verified 05/05/22 20:37 clavulanic acid Allergy Verified 05/05/22 20:37 [From Augmentin] Vital Signs (Last 24 hours) Temp Pulse Resp BP Pulse Ox 05/08/22 12:00 96.4 F 100 H 16 99/58 97 05/08/22 07:41 102 H 20 96 05/08/22 07:08 97.7 F 115 H 18 108/52 94 L 05/08/22 03:46 97.1 F 116 H 21 113/59 92 L 05/07/22 23:46 96.9 F 84 17 53/28 99 05/07/22 19:43 124 H 20 95 05/07/22 19:38 97.5 F 127 H 20 107/51 92 L 05/07/22 16:00 98.4 F 112 H 18 100/53 97 Home Medications Medication Instructions Recorded Confirmed Last Taken Type Albuterol Sulfate [Albuterol 2 puffs IH Q6HPRN PRN 05/05/22 05/06/22 05/06/22 History Sulfate Hfa] Alendronate Sodium 70 mg PO WEEKLY 05/05/22 05/06/22 04/30/22 History Allopurinol 300 mg [Zyloprim 300 mg PO DAILY 05/05/22 05/06/22 05/04/22 History 300 mg] Aspirin 81 mg PO DAILY 05/05/22 05/06/22 05/04/22 History Atorvastatin Calcium 20 mg PO HS 05/05/22 05/06/22 05/04/22 History Celecoxib 100 mg [celeBREX 100 200 mg PO DAILY 05/05/22 05/06/22 05/04/22 History MG] Cholecalciferol (Vitamin D3) 50 mcg PO DAILY 05/05/22 05/06/22 05/04/22 History [Vitamin D3] Dicyclomine HCl 20 mg PO UD 05/05/22 05/06/22 05/04/22 History Fluticasone/Umeclidin/Vilanter 1 puff IH DAILY 05/05/22 05/06/22 05/06/22 History [Trelegy Ellipta 100-62.5-25] Furosemide 20 mg [Lasix 20 20 mg PO BID 05/05/22 05/06/22 05/04/22 History mg] Gabapentin 600 mg PO BID 05/05/22 05/06/22 05/04/22 History Ipratropium/Albuterol Sulfate 3 ml IH Q6H PRN PRN 05/05/22 05/06/22 05/05/22 History [Iprat-Albut 0.5-3(2.5) mg/3 ml] Levothyroxine Sodium [Synthroid] 125 mcg PO DAILY 05/05/22 05/06/22 05/04/22 History Lisinopril 10 mg [Zestril 10 10 mg PO DAILY 05/05/22 05/06/22 05/04/22 History MG] Metoprolol Tartrate 25 mg PO BID 05/05/22 05/06/22 05/04/22 History Prednisone 5 mg [Deltasone 5 5 mg PO DAILY 05/05/22 05/06/22 05/04/22 History mg] Roflumilast 500 mcg PO DAILY 05/05/22 05/06/22 05/04/22 History Tizanidine HCl 4 mg [Zanaflex 4 4 mg PO Q8H 05/05/22 05/06/22 05/04/22 History MG] Linezolid [Zyvox] 600 mg PO BID 05/06/22 05/06/22 05/04/22 History Magnesium Hydroxide 30 ml [Milk 30 ml PO DAILY PRN PRN 05/06/22 05/06/22 Unknown History of Magnesia 30 ml] Montelukast Sodium 10 mg 10 mg PO QPM 05/06/22 05/06/22 05/03/22 History [Singulair 10 MG] Vitamin E 400 Units [Vitamin E 400 unit PO DAILY 05/06/22 05/06/22 05/04/22 History 400 UNIT SOFTGEL] Zinc Sulfate 220 mg PO DAILY 05/06/22 05/06/22 05/04/22 History Current Medications Generic Name Dose Route Start Last Admin Trade Name Freq PRN Reason Stop Dose Admin Albuterol Sulfate 2 puff 05/06/22 10:49 Albuterol Common Canister Inhaler 06/05/22 10:48 Q6HPRN PRN SHORTNESS OF BREATH/WHEEZING Albuterol/Ipratropium 3 ml 05/06/22 10:15 05/06/22 09:55 Ipratropium/Albuterol Sulfate 3 Ml Ampul.Neb 06/05/22 10:14 3 ml Q4HPRN PRN Administration SHORTNESS OF BREATH/WHEEZING Alendronate Sodium 70 mg 05/07/22 06:00 Alendronate Sodium 70 Mg Tablet PO 06/06/22 05:59 WEEKLY CHRISTY Allopurinol 300 mg 05/06/22 12:00 05/08/22 08:43 Allopurinol 300 Mg Tablet PO 06/05/22 11:59 300 mg DAILY CHRISTY Administration Aspirin 81 mg 05/06/22 12:00 05/08/22 08:43 Aspirin 81 Mg Tablet.Ec PO 06/05/22 11:59 81 mg DAILY CHRISTY Administration Celecoxib 200 mg 05/06/22 12:00 05/08/22 08:42 Celecoxib 100 Mg Capsule PO 06/05/22 11:59 200 mg DAILY CHRISTY Administration Cholecalciferol 2,000 unit 05/06/22 12:00 05/08/22 08:42 Cholecalciferol (Vitamin D3) 1000 Unit Tablet PO 06/05/22 11:59 2,000 unit DAILY CHRISTY Administration Methylprednisolone Sodium 0 mg 05/06/22 12:00 05/08/22 11:43 Succinate 60 mg/ Sterile Water IV 06/05/22 11:59 60 mg 2 ml Q6HT CHRISTY Administration Dicyclomine HCl 20 mg 05/06/22 11:30 05/08/22 11:42 Dicyclomine Hcl 20 Mg Tablet PO 06/05/22 11:29 20 mg AC CHRISTY Administration Enoxaparin Sodium 40 mg 05/06/22 13:00 05/08/22 08:42 Enoxaparin Sodium 40 Mg/0.4 Ml Syringe SQ 06/05/22 12:59 40 mg DAILY CHRISTY Administration Fluticasone Propionate 0 gm 05/07/22 10:00 05/08/22 08:44 Fluticasone Propionate 16 Gm Bottle Nasal [place] NS 06/06/22 09:59 16 gm DAILY CHRISTY Administration Furosemide 20 mg 05/06/22 17:00 05/08/22 08:43 Furosemide 20 Mg Tablet PO 06/05/22 16:59 20 mg BID DIURETIC CHRISTY Administration Gabapentin 600 mg 05/06/22 12:00 05/08/22 08:42 Gabapentin 300 Mg Capsule PO 06/05/22 11:59 600 mg BID CHRISTY Administration Insulin Human Lispro 0 unit 05/06/22 09:24 Insulin Lispro 1 Unit SQ 06/05/22 09:23 UD PRN HYPERGLYCEMIA Levothyroxine Sodium 125 mcg 05/06/22 12:00 05/08/22 08:44 Levothyroxine Sodium 125 Mcg Tablet PO 06/05/22 11:59 125 mcg DAILY CHRISTY Administration Linezolid 600 mg 05/06/22 22:00 05/08/22 11:42 Linezolid 600 Mg Tablet PO 06/05/22 21:59 600 mg BID CHRISTY Administration Lisinopril 10 mg 05/06/22 12:00 05/08/22 08:45 Lisinopril 10 Mg Tablet PO 06/05/22 11:59 Not Given DAILY CHRISTY Lorazepam 1 mg 05/07/22 01:07 Lorazepam 2 Mg/1 Ml 2 Mg Vial IV 06/06/22 01:05 Q4H PRN PRN ANXIETY Magnesium Hydroxide 30 ml 05/06/22 10:49 Magnesium Hydroxide 30 Ml Udcup PO 06/05/22 10:48 DAILY PRN PRN CONSTIPATION Metoprolol Tartrate 25 mg 05/06/22 12:00 05/08/22 08:46 Metoprolol Tartrate 25 Mg Tab PO 06/05/22 11:59 Not Given BID CHRISTY Montelukast Sodium 10 mg 05/06/22 22:00 05/07/22 21:06 Montelukast Sodium 10 Mg Tablet PO 06/05/22 21:59 10 mg QPM CHRISTY Administration Morphine Sulfate 2 mg 05/08/22 12:20 05/08/22 12:43 Morphine Sulfate 2 Mg/Ml Inj IV 05/13/22 12:19 2 mg Q4H PRN PRN Administration PAIN Pantoprazole Sodium 40 mg 05/06/22 10:00 05/08/22 08:44 Pantoprazole 40 Mg Vial IV 06/05/22 09:59 40 mg Q24H10 CHRISTY Administration Roflumilast 500 mcg 05/06/22 12:00 05/08/22 08:44 Roflumilast 500 Mcg Tablet PO 06/05/22 11:59 500 mcg DAILY CHRISTY Administration Fluticasone/Salmeterol 2 puff 05/06/22 19:00 05/08/22 07:37 Fluticasone/Salmeterol 115/21 - 120 Puff Common Canister IH 06/05/22 18:59 2 puff BIDRT CHRISTY Administration Simvastatin 20 mg 05/06/22 22:00 05/07/22 21:06 Simvastatin 20 Mg Tablet PO 06/05/22 21:59 20 mg HS CHRISTY Administration Sodium Chloride 1 ml 05/07/22 07:15 Sodium Chloride Nasal [place] 45 Ml Bottle NS 06/05/22 21:08 Q6HPRN PRN Dry Nose Tizanidine HCl 4 mg 05/06/22 14:00 05/08/22 06:20 Tizanidine Hcl 4 Mg Tablet PO 06/05/22 13:59 4 mg Q8HT CHRISTY Administration Vitamin E 400 u 05/06/22 12:00 05/08/22 08:45 Vitamin E 400 Iu Softgel PO 06/05/22 11:59 400 u DAILY CHRISTY Administration Zinc Gluconate 50 mg 05/06/22 12:00 05/08/22 08:45 Zinc Gluconate 50 Mg Tablet PO 06/05/22 11:59 50 mg DAILY CHRISTY Administration Discontinued Medications Generic Name Dose Route Start Last Admin Trade Name Freq PRN Reason Stop Dose Admin Albuterol/Ipratropium 3 ml 05/06/22 13:00 Ipratropium/Albuterol Sulfate 3 Ml Ampul.Neb 06/05/22 12:59 Q6HRT CHRISTY Albuterol/Ipratropium Confirm 05/06/22 09:57 Ipratropium/Albuterol Sulfate 3 Ml Ampul.Neb Administered 05/06/22 09:58 Dose 3 ml IH .STK-MED ONE Albuterol/Ipratropium 3 ml 05/06/22 10:49 Ipratropium/Albuterol Sulfate 3 Ml Ampul.Neb 06/05/22 10:48 Q6H PRN PRN SHORTNESS OF BREATH/WHEEZING Aspirin 81 mg 05/07/22 10:00 Aspirin 81 Mg Tab.Chew PO 06/06/22 09:59 DAILY [facility] Fluticasone Propionate Confirm 05/06/22 17:17 Fluticasone Propionate 16 Gm Bottle Nasal [place] Administered 05/06/22 17:18 Dose 16 gm NS .STK-MED ONE Furosemide 40 mg 05/05/22 20:55 05/05/22 21:09 Furosemide 40 Mg/4 Ml Vial IV 05/05/22 20:56 40 mg STAT ONE Administration Furosemide Confirm 05/05/22 21:08 Furosemide 40 Mg/4 Ml Vial Administered 05/05/22 21:09 Dose 40 mg .ROUTE .STK-MED ONE Sodium Chloride 1,000 mls @ 999 mls/hr 05/05/22 20:42 05/05/22 22:21 Sodium Chloride 0.9% 1000 Ml IV 05/05/22 21:42 Infused .Q1H1M STA Infusion Sodium Chloride Confirm 05/05/22 20:46 Sodium Chloride 0.9% 1000 Ml Administered 05/05/22 20:47 Dose 1,000 mls @ ud .ROUTE .STK-MED ONE Sodium Chloride 1,000 mls @ 999 mls/hr 05/05/22 22:01 05/05/22 23:26 Sodium Chloride 0.9% 1000 Ml IV 05/05/22 23:01 Infused .Q1H1M STA Infusion Sodium Chloride Confirm 05/05/22 22:02 Sodium Chloride 0.9% 1000 Ml Administered 05/05/22 22:03 Dose 1,000 mls @ ud .ROUTE .STK-MED ONE Ceftriaxone Sodium/Dextrose 1 g in 50 mls @ 100 mls/hr 05/05/22 22:19 05/05/22 23:25 Rocephin 1 Gm-D5w 50 Ml Bag IV 05/05/22 22:48 Infused STAT STA Infusion Ceftriaxone Sodium/Dextrose Confirm 05/05/22 22:25 Rocephin 1 Gm-D5w 50 Ml Bag Administered 05/05/22 22:26 Dose 1 g in 50 mls @ ud IV .STK-MED ONE Sodium Chloride 1,000 mls @ 999 mls/hr 05/05/22 23:26 05/06/22 07:06 Sodium Chloride 0.9% 1000 Ml IV 05/06/22 00:26 Infused .Q1H1M STA Infusion Norepinephrine/Dextrose 8 mg in 250 mls @ 15 mls/hr 05/05/22 23:27 05/06/22 10:00 Norepinephrine 8 Mg/250 Ml-D5w IV 06/04/22 23:26 0 mcg/min .[id number] PRN 0 mls/hr HYPOTENSION Titration Protocol 8 MCG/MIN Sodium Chloride Confirm 05/05/22 23:30 Sodium Chloride 0.9% 1000 Ml Administered 05/05/22 23:31 Dose 1,000 mls @ ud .ROUTE .STK-MED ONE Azithromycin 500 mg in 250 mls @ 250 mls/hr 05/06/22 00:40 05/06/22 02:10 Zithromax 500 Mg/ 250 Ml Nacl Premix IV 05/06/22 01:39 Infused STAT STA Infusion Azithromycin Confirm 05/06/22 00:57 Zithromax 500 Mg/ 250 Ml Nacl Premix Administered 05/06/22 00:58 Dose 500 mg in 250 mls @ ud IV .STK-MED ONE Sodium Chloride 1,000 mls @ 100 mls/hr 05/06/22 06:15 05/06/22 06:19 Sodium Chloride 0.9% 1000 Ml IV 06/05/22 06:14 100 mls/hr .Q10H CHRISTY Administration Ceftriaxone Sodium/Dextrose 2 g in 50 mls @ 100 mls/hr 05/06/22 09:24 05/06/22 09:58 Rocephin 2 Gm-D5w 50ml Bag IV 05/06/22 09:53 Not Given STAT STA Azithromycin 500 mg in 250 mls @ 250 mls/hr 05/06/22 09:24 05/06/22 09:58 Zithromax 500 Mg/ 250 Ml Nacl Premix IV 05/06/22 10:23 Not Given STAT STA Diltiazem HCl 100 mls @ 5 mls/hr 05/06/22 12:22 05/06/22 23:00 Cardizem Drip 100 Mg/100 Ml D5w IV 06/05/22 12:21 Infused .Q20H PRN Titration HEART RATE/ A-FIB Protocol 5 MG/HR Sodium Chloride 1,000 mls @ 50 mls/hr 05/06/22 14:45 05/07/22 06:06 Sodium Chloride 0.9% 1000 Ml IV 06/05/22 14:44 50 mls/hr .Q20H CHRISTY Administration Lorazepam 1 mg 05/06/22 18:59 Lorazepam 2 Mg/1 Ml 2 Mg Vial IV 06/05/22 18:58 Q6H PRN PRN ANXIETY Methylprednisolone Sodium Succinate Confirm 05/06/22 17:21 Methylprednis Sod Succ 125 Mg/2 Ml Vial Administered 05/06/22 17:22 Dose 125 mg .ROUTE .STK-MED ONE Methylprednisolone Sodium Succinate Confirm 05/07/22 17:24 Methylprednis Sod Succ 125 Mg/2 Ml Vial Administered 05/07/22 17:25 Dose 125 mg .ROUTE .STK-MED ONE Miscellaneous Information 1 each 05/06/22 11:15 Medication Intervention 1 Each Each 06/05/22 11:14 .RN TO CHECK CHRISTY Sodium Chloride 1 ml 05/06/22 21:09 05/06/22 21:15 Sodium Chloride Nasal [place] 45 Ml Bottle NS 06/05/22 21:08 1 ml Q6H PRN Administration Dry Nose Intake & Output (Last 24 hours) 05/06/22 05/07/22 05/08/22 05/09/22 11:59 11:59 11:59 11:59 Intake Total 635 340 Output Total 2050 900 Balance -1415 -560 Weight 91.5 kg 91.5 kg Orders (Last 24 hours) Category Date Time Status Discharge Planning,Consult Routine Discharge 05/08/22 Active Methylprednis Sod Succ 125 mg* [solu-MEDROL] Med 05/07/22 17:24 Discontinued 125 mg .ROUTE .STK-MED ONE Morphine Sulfate 2 mg Inj Med 05/08/22 12:20 Active 2 mg IV Q4H PRN PRN Patient Care Notes (Last 24 hours) 05/08/22 12:27 Case Management Note by Radha Stallings HAD LONG DISCUSSION WITH DAUGHTER ANTHONY AND - WE DISCUSSED HOSPICE CARE VS REHAB. AFTER MUCH CONSIDERATION AND S/W DR CEE THEY HAVE DECIDED TO TAKE PATIENT HOME WITH HOSPICE. DAUGHTER WILL STAY IN TOWN AND HELP CARE FOR HER WITH PATIENT'S . THEY HAVE CHOSEN [facility]. REFERRAL AND ORDER SENT. S/[facility]- THEY WILL CONTACT DAUGHTER AND REQUEST EQUIPMENT DELIVERY AND LET US KNOW WHEN TO ARRANGE TRANSPORT ( LIKELY TOMORROW). I S/W PATIENT- SHE ALSO WISHES TO RETURN HOME AND BE KEPT COMFORTABLE. WHEN THIS NURSE ASKED IF SHE WANTED TO GO HOME AND LET NATURE TAKE ITS COURSE SHE RESPONDED - "ITS BETTER THAN THIS". PATIENT UNDERSTANDS HER BODY IS SHUTTING DOWN AND WANTS TO BE HOME AND KEPT COMFORTABLE Initialized on 05/08/22 12:27 - END OF NOTE 05/07/22 23:47 JACK FRAME TENDER Note by Padmini Dutta pt bp is running ow and VALE Girard was notifed and came to the room. pt bp was 53/28 on lower arm, 50/18 upper arm Initialized on 05/07/22 23:47 - END OF NOTE 05/07/22 23:16 Nursing Note by Era Damian CNA asked this nurse to come to room to assess patient. BP reading on dynamap 40/24 and 50/20. Dr. Cee notified, no new orders. Initialized on 05/07/22 23:16 - END OF NOTE 05/07/22 16:20 Nursing Note by Angie Kapadia pt's daughter and at bedside, they have expressed wishes that pt continue medications as she may be going back to rehab at this time. Initialized on 05/07/22 16:20 - END OF NOTE 05/07/22 13:17 Nursing Note by Maria Antonia Begum Patient was made MSOF 05/07/22 @ 11:56 and moved to room #[id number]. Initialized on 05/07/22 13:17 - END OF NOTE Code(s): J96.90 - RESPIRATORY FAILURE, UNSP, UNSP W HYPOXIA OR HYPERCAPNIA (2) Acute exacerbation of chronic obstructive pulmonary disease (COPD) Current Visit: Yes Status: Acute Code(s): J44.1 - CHRONIC OBSTRUCTIVE PULMONARY DISEASE W (ACUTE) EXACERBATION
[2022-05-08] MEDS ORDERED: solu-MEDROL ONE (17:40)
[2022-05-08] MEDS: ZOCOR 20MG PO SCH (21:35)
[2022-05-08] MEDS: Singulair 10 MG PO SCH (21:35)
[2022-05-09] MEDS: MORPHINE SULFATE 2 MG INJ IV PRN ×2 (01:53→12:31)
[2022-05-09] MEDS: Ativan 2 MG/1 ML VIAL IV PRN ×2 (03:36→13:39)
[2022-05-09] MEDS: Zanaflex 4 MG PO SCH (05:46)
[2022-05-09] MEDS: solu-MEDROL 60 MG, Sterile H2O 10 ml 2 ML IV SCH ×4 (05:49→12:55)
[2022-05-09 07:26] VITALS: O2SAT 90
[2022-05-09] MEDS: DALIRESP PO SCH (10:05)
[2022-05-09] MEDS: BENTYL 20 MG PO SCH ×2 (10:05→12:55)
[2022-05-09] MEDS: celeBREX 100 MG PO SCH (10:05)
[2022-05-09] MEDS: ENOXAPARIN SODIUM SQ SCH (10:06)
[2022-05-09] MEDS: VITAMIN D PO SCH (10:06)
[2022-05-09] MEDS: ECOTRIN 81 MG PO SCH (10:06)
[2022-05-09] MEDS: Flonase NASAL NS SCH (10:06)
[2022-05-09] MEDS: PROTONIX 40 MG IV IV SCH (10:06)
[2022-05-09] MEDS: Vitamin E 400 UNIT SOFTGEL PO SCH (10:06)
[2022-05-09] MEDS: LASIX 20 MG PO SCH (10:06)
[2022-05-09] MEDS: SYNTHROID 125 MCG PO SCH (10:06)
[2022-05-09] MEDS: Lopressor 25MG Tab PO SCH (10:06)
[2022-05-09] MEDS: NEURONTIN PO SCH (10:06)
[2022-05-09] MEDS: Zinc Gluconate 50 MG PO SCH (10:07)
[2022-05-09] MEDS: ZYLOPRIM 300 MG PO SCH (10:07)
[2022-05-09] MEDS: ZYVOX PO SCH (10:07)
[2022-05-09] MEDS: Zestril 10 MG PO SCH (10:07)
[2022-05-09] MEDS: Advair Hfa 115/21 Common canister IH SCH (10:11)
--- NOTE | 2022-05-09 12:06 | PCM.DCORD ---
- Discharge Discharge Date: 05/09/22 Disposition: Hospice @ [facility] Condition: Stable Prescriptions: Continue Metoprolol Tartrate 25 mg PO BID Lisinopril 10 mg [Zestril 10 MG] 10 mg PO DAILY Gabapentin 600 mg PO BID Furosemide 20 mg [Lasix 20 mg] 20 mg PO BID Dicyclomine HCl 20 mg PO UD Cholecalciferol (Vitamin D3) [Vitamin D3] 50 mcg PO DAILY Celecoxib 100 mg [celeBREX 100 MG] 200 mg PO DAILY Alendronate Sodium 70 mg PO WEEKLY Atorvastatin Calcium 20 mg PO HS Aspirin 81 mg PO DAILY Allopurinol 300 mg [Zyloprim 300 mg] 300 mg PO DAILY Ipratropium/Albuterol Sulfate [Iprat-Albut 0.5-3(2.5) mg/3 ml] 3 ml IH Q6H PRN PRN PRN Reason: Shortness Of Breath/Wheezing Albuterol Sulfate [Albuterol Sulfate Hfa] 2 puffs IH Q6HPRN PRN PRN Reason: Shortness Of Breath/Wheezing Fluticasone/Umeclidin/Vilanter [Trelegy Ellipta 100-62.5-25] 1 puff IH DAILY Tizanidine HCl 4 mg [Zanaflex 4 MG] 4 mg PO Q8H Levothyroxine Sodium [Synthroid] 125 mcg PO DAILY Roflumilast 500 mcg PO DAILY Prednisone 5 mg [Deltasone 5 mg] 5 mg PO DAILY Vitamin E 400 Units [Vitamin E 400 UNIT SOFTGEL] 400 unit PO DAILY Magnesium Hydroxide 30 ml [Milk of Magnesia 30 ml] 30 ml PO DAILY PRN PRN PRN Reason: Constipation Linezolid [Zyvox] 600 mg PO BID Montelukast Sodium 10 mg [Singulair 10 MG] 10 mg PO QPM Zinc Sulfate 220 mg PO DAILY Instructions: Heart Failure, Adult (DC), Pneumonia, Adult (DC), Sepsis, Adult (DC) Follow up with: EDUARDO CHEN DO [NON-STAFF PHY W/O PRIVILEGES] - ENVIVE,ENVIVE [LOCATION] - WAYNE TREVIÑO JR [Primary Care Provider] - ARAMIS CARRERO MD [NON-STAFF PHY W/O PRIVILEGES] - Forms: Discharge Instructions
[2022-05-09 12:30] VITALS: BP 128/58; PULSE 136
== END 2022-05-09 11:03 | disposition hospice, home (50) | DRG 189 ==
LOC: ED 20:15 → ICU 05-06 09:18 → MED SURG 05-07 11:56
PROVIDERS: ADMIT General Practice; ATTEND General Practice
DX: J96.21 Acute and chronic respiratory failure with hypoxia (principal); J44.1 Chronic obstructive pulmonary disease with (acute) exacerbation; J96.22 Acute and chronic respiratory failure with hypercapnia; I11.0 Hypertensive heart disease with heart failure; I50.9 Heart failure, unspecified; R77.8 Other specified abnormalities of plasma proteins; M71.161 Other infective bursitis, right knee; Z79.899 Other long term (current) drug therapy; Z20.828 Contact with and (suspected) exposure to other viral communicable diseases; Z99.81 Dependence on supplemental oxygen
CPT/HCPCS: 0241U; 36000; 36415; 36600; 51702; 71045; 71260; 80048; 80053; 81015; 82375; 82803; 83605; 83735; 83880; 84484; 85025; 85379; 85610; 85730; 87040; 93005; 94002; 94640; 94760; 96360; 96361; 96365; 96367; 96374; 96375; 99285; 99291; 99292; J0456; J0696; J1650; J1940; J2060; J2270; J2930; A9270-GY